=== PATIENT | female | born 1950 | race Caucasian/White ===

== ENCOUNTER → 2016-12-08 | Outpatient (CLI) | payer MEDICARE, OTHER ==
--- NOTE | 2016-12-12 11:05 | MM ---
Reason for exam: screening (asymptomatic). Last mammogram was performed 1 year ago. History: Patient is postmenopausal. Family history of breast cancer in grandmother and breast cancer in mother. Benign US biopsy breast VAD LT of the left breast, November 24, 2014. Benign excisional biopsy of the left breast, 1997. Physical Findings: A clinical breast exam by your physician is recommended on an annual basis and results should be correlated with mammographic findings. MG 3D Screening Mammo W/Cad Bilateral CC and MLO view(s) were taken. Prior study comparison: December 08, 2015, bilateral MG 3d diag mammo w/cad [facility]. November 24, 2014, left breast MG diagnostic mammo LT wo CAD. November 05, 2014, bilateral MG screening mammo w CAD. February 25, 2013, bilateral digital screening mammo w/CAD. There are scattered fibroglandular densities. No significant changes when compared with prior studies. ASSESSMENT: Benign, BI-RAD 2 RECOMMENDATION: Routine screening mammogram of both breasts in 1 year.
== END | disposition home or self-care (01) ==
LOC: RADMAMWWP 09:57
PROVIDERS: ATTEND Family Medicine
DX: Z12.31 Encounter for screening mammogram for malignant neoplasm of breast (principal); Z78.0 Asymptomatic menopausal state; Z80.3 Family history of malignant neoplasm of breast
CPT/HCPCS: 77063; G0202

== ENCOUNTER → 2017-12-24 | Outpatient (CLI) | payer MEDICARE, OTHER | END | disposition home or self-care (01) | LOC: LABPAT 14:41 | PROVIDERS: ATTEND Surgery Plastic and Reconstructive Surgery | DX: Z01.810 Encounter for preprocedural cardiovascular examination (principal) | CPT/HCPCS: 93005 ==

== ENCOUNTER → 2017-12-24 | Outpatient (CLI) | payer MEDICARE, OTHER ==
--- NOTE | 2017-12-26 10:07 | MM ---
Reason for exam: screening (asymptomatic). Last mammogram was performed 1 year and 1 month ago. History: Patient is postmenopausal. Family history of breast cancer in grandmother and breast cancer in mother. Benign US biopsy breast VAD LT of the left breast, November 24, 2014. Benign excisional biopsy of the left breast, 1997. Physical Findings: A clinical breast exam by your physician is recommended on an annual basis and results should be correlated with mammographic findings. MG 3D Screening Mammo W/Cad Bilateral CC and MLO view(s) were taken. Technologist: RT Tl (R)(M) Prior study comparison: December 08, 2016, bilateral MG 3d screening mammo w/cad. December 08, 2015, bilateral MG 3d diag mammo w/cad [facility]. There are scattered fibroglandular densities. Previous mammotome biopsy in the left breast at the site of chronic nodularity. No significant changes when compared with prior studies. ASSESSMENT: Negative, BI-RAD 1 RECOMMENDATION: Routine screening mammogram of both breasts in 1 year.
== END | disposition home or self-care (01) ==
LOC: RADMAMWWP 14:40
PROVIDERS: ATTEND Family Medicine
DX: Z12.31 Encounter for screening mammogram for malignant neoplasm of breast (principal); Z80.3 Family history of malignant neoplasm of breast
CPT/HCPCS: 77063; 77067

== ENCOUNTER 2018-01-17 10:07 | Day surgery (SDC) | payer MEDICARE, OTHER ==
[2017-12-28 12:50] VITALS: BMI 32.9
[~2018-01-17 10:07] MED LIST: DEXAMETHASONE SOD PHOSPHATE 10 MG/ML 1 ML VIAL IV ONE; MIDAZOLAM 2 MG/2 ML VIAL IV PRN; ONDANSETRON 4 MG/2 ML VIAL IVP ONE; Pre Op ABX Message 1 EACH MISC MISCELLANE ONE; SCOPOLAMINE 1.5MG/72HR PATCH TRANSDERM ONE; fentaNYL (PF) 50 MCG/ML 2 ML AMP IV PRN
[2018-01-17] MEDS ORDERED: LIDOCAINE 1% 20 ML VIAL (10MG/ML) FOR IV START INTRADERMA ONE (10:49)
[2018-01-17] MEDS: LACTATED RINGERS 1,000 ML IV SCH ×2 (10:49→11:23)
[2018-01-17 10:52] LABS: Glucose,Whole Blood 228 mg/dL (75-99)
[2018-01-17] MEDS ORDERED: ceFAZolin IN SWFI 2 GM/20 ML SYRINGE IVP STA (11:09)
--- NOTE | 2018-01-17 11:09 | P.GSHP ---
History of Present Illness H&P Date: 01/17/18 CHIEF COMPLAINT: Painful lesion at the left upper back HISTORY OF PRESENT ILLNESS: The patient is a 67 year-old female with history of lipoma of the back. She presents today for surgical excision. PAST MEDICAL HISTORY: Please see list. PAST SURGICAL HISTORY: Please see list. MEDICATIONS: Please see list. ALLERGIES: Please see list. SOCIAL HISTORY: No illicit drug use FAMILY HISTORY: No reports of Crohn disease or ulcerative colitis. REVIEW OF ORGAN SYSTEMS: CONSTITUTIONAL: No reports of fevers or chills. GI: Denies any blood in stools or constipation. PHYSICAL EXAM: VITAL SIGNS: Stable Musculoskeletal: Approximately 5 cm lipoma along the left upper back. SKIN: Lesion identified along bilateral thighs. GENERAL: Well developed and in no acute distress. Pleasant. HEENT: No sclera icterus. Extraocular movements grossly intact. Moist buccal mucosa. Head is atraumatic, normocephalic. Hears conversational speech. No nasal drainage. NECK: Supple without lymphadenopathy. No JV distention. CHEST: Non-labored respirations and equal bilateral excursions. CARDIOVASCULAR: Regular rate and rhythm. Palpable 2+ radial pulses. ABDOMEN: Soft. Non-tender. Nondistended. NEUROLOGIC: No focal or lateralizing signs. PSYCH: Appropriate affect. Alert and oriented to person, place and time. ASSESSMENT: 1. Lipomas along the left upper back PLAN: 1. Will proceed of excision of subcutaneous tumors along the upper back 2. DVT prophylaxis. 3. Antibiotic prophylaxis. 4. Time of recovery, at least 2 weeks. Past Medical History Past Medical History: Diabetes Mellitus, Eye Disorder, Hyperlipidemia, Hypertension Additional Past Medical History / Comment(s): Cataracts History of Any Multi-Drug Resistant Organisms: None Reported Past Surgical History: Breast Surgery, Cholecystectomy, Orthopedic Surgery Additional Past Surgical History / Comment(s): shoulder scope; Lipoma x 2; benighn breast biopsy Past Anesthesia/Blood Transfusion Reactions: No Reported Reaction Smoking Status: Never smoker - Past Family History Mother Family Medical History: Cancer Additional Family Medical History / Comment(s): Breast CA Medications and Allergies Home Medications Medication Instructions Recorded Confirmed Type Aspirin 325 mg PO DAILY 12/28/17 01/17/18 History Atorvastatin [Lipitor] 20 mg PO HS 12/28/17 01/17/18 History Etodolac [Lodine] 400 mg PO BID 12/28/17 01/17/18 History Quinapril/Hydrochlorothiazide 1 each PO DAILY 12/28/17 01/17/18 History [Accuretic 10-12.5 mg Tablet] metFORMIN HCL [Glucophage] 850 mg PO BID 12/28/17 01/17/18 History Allergies Allergy/AdvReac Type Severity Reaction Status Date / Time hydrocodone [From Lortab] AdvReac Nausea & Verified 12/28/17 12:40 Vomiting morphine AdvReac Nausea & Verified 12/28/17 12:40 Vomiting Surgical - Exam Vital Signs Temp Pulse Resp BP Pulse Ox 98.2 F 98 18 185/84 96 01/17/18 10:46 01/17/18 10:46 01/17/18 10:46 01/17/18 10:46 01/17/18 10:46 Results - Labs Abnormal Lab Results - Last 24 Hours (Table) 01/17/18 Range/Units 10:48 POC Glucose (mg/dL) 228 H (75-99) mg/dL
[2018-01-17] MEDS ORDERED: PROPOFOL 10 MG/ML 20 ML VIAL IV ONE (11:25)
[2018-01-17] MEDS ORDERED: LIDOCAINE 1% INJ 10MG/ML (20 ML MDV) ONE (11:25)
[2018-01-17] MEDS ORDERED: MIDAZOLAM 2 MG/2 ML VIAL ONE (11:25)
[2018-01-17] MEDS ORDERED: SUCCINYLCHOLINE CHLORIDE 100 MG/5 ML SYR IV ONE (11:25)
[2018-01-17] MEDS ORDERED: fentaNYL (PF) 50 MCG/ML 2 ML AMP ONE (11:25)
[2018-01-17] MEDS ORDERED: BUPIVACAIN-EPI 0.5%-1:200,000 30 ML VIAL SQ ONE (11:51)
--- NOTE | 2018-01-17 12:26 | P.OP ---
Date of Procedure: 01/17/18 Surgeon: La Belcher Description of Procedure: Date of Procedure: 01/17/18 SURGEON: LA BELCHER MD PROPULSION MOTOR AND GENERATOR REPAIRER: None. PREOPERATIVE DIAGNOSES: 1. Recurrent lipoma left upper back POSTOPERATIVE DIAGNOSES: 1. Recurrent lipoma left upper back, 7 x 6 cm, intramuscular PROCEDURES PERFORMED: 1. Excision of deep left upper back subfascial and intramuscular tumor, 7 x 6 cm 2. Intermediate closure of 8 cm along left upper back ANESTHESIA: GETA with local ESTIMATED BLOOD LOSS: 5 mL. SPECIMENS REMOVED: Left upper back tumor, 7 x 6 cm COMPLICATIONS: None. INDICATIONS: The patient is a 67-year-old female with recurrent left upper back lipoma. Now she presents for surgical intervention. Benefits and risks of surgical intervention were described including bleeding, infection. Informed consent was obtained. DESCRIPTION OR PROCEDURE: Patient was brought into the operating room, laid in prone position. After general, the back was prepped and draped in a standard sterile fashion with ChloraPrep. Timeout protocol was confirmed with the surgical team regarding the patient's name, procedure to be performed including preoperative medications. DVT prophylaxis was confirmed. A field block was placed of the back. Indelible marker was placed around the tumor 7 x 6 cm. An incision using #15 blade was made along the marking into the dermis and subcutaneous tissue. Electro-Bovie cautery was used to excise the lesion deep to the fascia and intramuscular in a transverse elliptical fashion. Undermining was performed along for closure. 0 Vicryl for the deep subcutaneous tissue followed by 3-0 Vicryl was placed in interrupted fashion. 4-0 Monocryl in a running subcuticular fashion was placed along the dermis. The skin was cleansed and Exofin tape with liquid was applied for a four layer closure. The incision was covered with Optifoam dressing. Local anesthetic was placed. At the end of the procedure, needle, sponge, and instrument count was verified correct by surgical elastic knitter hand frame. The patient was awoken and taken to the second stage postanesthesia care unit. The patient tolerated the procedure well. FINDINGS: 1. Deep subcutaneous intramuscular tumor extended to the subfascial, 6 x 7 cm excision
[2018-01-17 12:44] VITALS: TEMP 97.2
[2018-01-17 12:48] VITALS: RESP 16
[2018-01-17] MEDS ORDERED: LACTATED RINGERS 1,000 ML IV ONE (14:14)
[2018-01-17 14:36] VITALS: BP 126/78; PULSE 84
== END 2018-01-17 14:55 | disposition home or self-care (01) ==
LOC: OR 10:07
PROVIDERS: ATTEND Surgery Plastic and Reconstructive Surgery
DX: D17.9 Benign lipomatous neoplasm, unspecified (principal); I10 Essential (primary) hypertension; E78.2 Mixed hyperlipidemia; E11.36 Type 2 diabetes mellitus with diabetic cataract; K21.9 Gastro-esophageal reflux disease without esophagitis; Z79.84 Long term (current) use of oral hypoglycemic drugs; Z79.82 Long term (current) use of aspirin; Z79.899 Other long term (current) drug therapy; Z88.5 Allergy status to narcotic agent; Z90.49 Acquired absence of other specified parts of digestive tract; Z82.49 Family history of ischemic heart disease and other diseases of the circulatory system
CPT/HCPCS: 88304; 21933; J2250; J1100; J2405; J2001; J3010; J0330; J2704

== ENCOUNTER → 2019-01-07 | Outpatient (CLI) | payer MEDICARE, OTHER ==
--- NOTE | 2019-01-07 18:07 | BD ---
EXAMINATION TYPE: Axial Bone Density DATE OF EXAM: 01/07/2019 COMPARISON: 11/10/2002 CLINICAL HISTORY: Height: 60.5 IN Weight: 172 LBS FRAX RISK QUESTIONS: Family History (Parent hip fracture): YES MOTHER RISK FACTORS HISTORY OF: Active: YES Diet low in dairy products/other sources of calcium: YES Postmenopausal woman: AGE 49 MEDICATIONS: Additional Medications: BLOOD PRESSURE MED, CHOLESTEROL MED, ASPIRIN, ANTI INFLAMMATORY, METFORMIN EXAM MEASUREMENTS: Bone mineral densitometry was performed using the Manager[employer] System. Bone mineral density as measured about the Lumbar spine is: ----- L1-L4(G/cm2): 1.632 T Score Values are as follows: ----- L2: 3.5 ----- L3: 5.3 ----- L4: 3.5 ----- L1-L4: 3.8 Bone mineral density has: Increased 26.3% since study of: 11/10/2002 Bone mineral density about the R hip (g/cm2): 0.915 Bone mineral density about the L hip (g/cm2): 0.948 T Score values are as follows: -----R Neck: -0.9 -----L Neck: -0.6 -----R Total: -1.0 -----L Total: -0.7 Bone mineral density has: Decreased -15.1% since study of: 11/10/2002 IMPRESSION: Normal (Values between +1 and -1 indicate normal bone mass). Consider repeating this study in 5 year s or sooner if there is some new clinical indication. NOTE: T-SCORE=SD OF THE YOUNG ADULT MEAN.
--- NOTE | 2019-01-08 13:46 | MM ---
Reason for exam: screening (asymptomatic). Last mammogram was performed 1 year ago. History: Patient is postmenopausal. Family history of breast cancer in grandmother and breast cancer in mother. Benign US biopsy breast VAD LT of the left breast, November 24, 2014. Benign excisional biopsy of the left breast, 1997. Physical Findings: A clinical breast exam by your physician is recommended on an annual basis and results should be correlated with mammographic findings. MG 3D Screening Mammo W/Cad Bilateral CC, MLO, and XCCL view(s) were taken. Prior study comparison: December 24, 2017, bilateral MG 3d screening mammo w/cad. December 08, 2016, bilateral MG 3d screening mammo w/cad. There are scattered fibroglandular densities. Stable calcifications. There is no discrete abnormality. No significant changes when compared with prior studies. ASSESSMENT: Benign, BI-RAD 2 RECOMMENDATION: Routine screening mammogram of both breasts in 1 year.
== END | disposition home or self-care (01) ==
LOC: RADMAMWWP 14:40
PROVIDERS: ATTEND Family Medicine
DX: Z12.31 Encounter for screening mammogram for malignant neoplasm of breast (principal); Z13.820 Encounter for screening for osteoporosis; M81.0 Age-related osteoporosis without current pathological fracture
CPT/HCPCS: 77063; 77067; 77080

== ENCOUNTER → 2019-12-12 | Outpatient (CLI) | payer MEDICARE, OTHER ==
[2019-12-12 12:34] LABS: Basophils # (A) 0.1 k/uL (0-0.2); Basophils % (A) 2 %; Eosinophils # (A) 0.1 k/uL (0-0.7); Eosinophils % (A) 2 %; HCT 38.5 % (34.0-46.0); HGB 12.2 gm/dL (11.4-16.0); Lymphocytes # (A) 1.1 k/uL (1.0-4.8); Lymphocytes % (A) 20 %; MCH 26.9 pg (25.0-35.0); MCHC 31.7 g/dL (31.0-37.0); MCV 84.9 fL (80.0-100.0); Mean Platelet Volume 8.2; Monocytes # (A) 0.3 k/uL (0-1.0); Monocytes % (A) 5 %; Neutrophils # (A) 4.1 k/uL (1.3-7.7); Neutrophils % (A) 70 %; Platelet Count 246 k/uL (150-450); RBC 4.54 m/uL (3.80-5.40); RDW 13.3 % (11.5-15.5); WBC 5.8 k/uL (3.8-10.6)
[2019-12-12 17:57] LABS: African American GFR (CKD) 75.1 (60.0-200.0); Albumin 4.1 g/dL (3.80-4.90); Albumin/Globulin Ratio 1.95 (1.60-3.17); Anion Gap 8.2 mmol/L (4.00-12.00); BUN/Creat Ratio 18.89 Ratio (12.00-20.00); Calcium 9.9 mg/dL (8.7-10.3); Carbon Dioxide 26.8 mmol/L (21.6-31.8); Chol/HDL Ratio 3.21; Globulin 2.1 g/dL (1.6-3.3); LDL Cholesterol,Calculated 84.6 mg/dL (0.0-131.0); Non-African American GFR(CKD) 64.8 (60.0-200.0); Potassium 4.3 mmol/L (3.5-5.5); Total Bilirubin 0.7 mg/dL (0.3-1.2); Total Protein 6.2 g/dL (6.2-8.2); VLDL Calculation 19.4 mg/dL (5.00-40.00)
[2019-12-12 19:27] LABS: Hemoglobin A1C 7.4 % (4.0-6.0)
== END | disposition home or self-care (01) ==
LOC: LABWHC1 10:59
PROVIDERS: ATTEND Family Medicine
DX: I10 Essential (primary) hypertension (principal); E78.2 Mixed hyperlipidemia; E11.9 Type 2 diabetes mellitus without complications
CPT/HCPCS: 36415; 80053; 80061; 82043; 82570; 83036; 85025

== ENCOUNTER → 2020-01-08 | Outpatient (CLI) | payer MEDICARE, OTHER ==
--- NOTE | 2020-01-09 12:13 | MM ---
Reason for exam: screening (asymptomatic). Last mammogram was performed 1 year ago. History: Patient is postmenopausal. Family history of breast cancer in grandmother and breast cancer in mother. Benign US biopsy breast VAD LT of the left breast, November 24, 2014. Benign excisional biopsy of the left breast, 1997. Physical Findings: A clinical breast exam by your physician is recommended on an annual basis and results should be correlated with mammographic findings. MG 3D Screening Mammo W/Cad Bilateral CC and MLO view(s) were taken. Prior study comparison: January 07, 2019, bilateral MG 3d screening mammo w/cad. December 24, 2017, bilateral MG 3d screening mammo w/cad. The breast tissue is heterogeneously dense. This may lower the sensitivity of mammography. There are benign appearing round vascular calcifications bilaterally. Previous mammotome biopsy in the left breast. There is chronic nodularity in the left breast near nipple. There is no discrete abnormality. ASSESSMENT: Benign, BI-RAD 2 RECOMMENDATION: Routine screening mammogram of both breasts in 1 year.
== END ==
LOC: RADMAMWWP 16:35
PROVIDERS: ATTEND Family Medicine
DX: Z12.31 Encounter for screening mammogram for malignant neoplasm of breast (principal)
CPT/HCPCS: 77063; 77067

== ENCOUNTER → 2020-12-10 | Outpatient (CLI) | payer MEDICARE, OTHER ==
[2020-12-10 18:51] LABS: Eosinophils # (A) 0.18 X 10*3/uL (0.04-0.35); Eosinophils % (A) 3.6 %; HGB 11.5 g/dL (12.0-15.0); Lymphocytes # (A) 1.06 X 10*3/uL (0.90-5.00); Lymphocytes % (A) 21.1 %; MCH 28.5 pg (27.0-32.0); MCHC 32.9 g/dL (32.0-37.0); MCV 86.6 fL (80.0-97.0); Mean Platelet Volume 10.7 fL (9.5-12.2); Monocytes # (A) 0.42 X 10*3/uL (0.20-1.00); Monocytes % (A) 8.3 %; Neutrophils # (A) 3.26 X 10*3/uL (1.80-7.70); Neutrophils % (A) 64.8 %; Platelet Count 293 X 10*3/uL (140-440); RBC 4.04 X 10*6/uL (4.10-5.20); RDW 13.2 % (11.5-14.5); WBC 5.03 X 10*3/uL (4.50-10.00)
[2020-12-10 21:04] LABS: Hemoglobin A1C 6.7 % (4.0-6.0)
[2020-12-11 18:17] LABS: African American GFR (CKD) 58.5 (60.0-200.0); Albumin 4.7 g/dL (3.80-4.90); Albumin/Globulin Ratio 2.47 (1.60-3.17); Anion Gap 14.5 mmol/L (4.00-12.00); BUN/Creat Ratio 21.82 Ratio (12.00-20.00); Calcium 10.5 mg/dL (8.7-10.3); Carbon Dioxide 21.5 mmol/L (21.6-31.8); Chol/HDL Ratio 2.74; Globulin 1.9 g/dL (1.6-3.3); LDL Cholesterol,Calculated 70.8 mg/dL (0.0-131.0); Non-African American GFR(CKD) 50.5 (60.0-200.0); Potassium 4.9 mmol/L (3.5-5.5); Total Bilirubin 0.6 mg/dL (0.3-1.2); Total Protein 6.6 g/dL (6.2-8.2); VLDL Calculation 21.2 mg/dL (5.00-40.00)
== END | disposition home or self-care (01) ==
LOC: LABWHC1 11:40
PROVIDERS: ATTEND Family Medicine
DX: I10 Essential (primary) hypertension (principal); E11.9 Type 2 diabetes mellitus without complications
CPT/HCPCS: 36415; 80053; 80061; 82043; 82570; 83036; 84443; 85025

== ENCOUNTER → 2021-01-20 | Outpatient (CLI) | payer MEDICARE, OTHER ==
--- NOTE | 2021-01-21 12:05 | MM ---
Reason for exam: screening (asymptomatic). Last mammogram was performed 1 year ago. History: Patient is postmenopausal. Family history of breast cancer in grandmother and breast cancer in mother. Benign US biopsy breast VAD LT of the left breast, November 24, 2014. Benign excisional biopsy of the left breast, 1997. Physical Findings: A clinical breast exam by your physician is recommended on an annual basis and results should be correlated with mammographic findings. MG 3D Screening Mammo W/Cad Bilateral CC and MLO view(s) were taken. Prior study comparison: January 08, 2020, bilateral MG 3d screening mammo w/cad. January 07, 2019, bilateral MG 3d screening mammo w/cad. December 24, 2017, bilateral MG 3d screening mammo w/cad. There are scattered fibroglandular densities. Previous mammotome biopsy in the left breast. Focal asymmetry left subareolar, stable. No significant changes when compared with prior studies. ASSESSMENT: Benign, BI-RAD 2 RECOMMENDATION: Routine screening mammogram of both breasts in 1 year.
== END | disposition home or self-care (01) ==
LOC: RADMAMWWP 07:33
PROVIDERS: ATTEND Family Medicine
DX: Z12.31 Encounter for screening mammogram for malignant neoplasm of breast (principal); Z08 Encounter for follow-up examination after completed treatment for malignant neoplasm; Z80.3 Family history of malignant neoplasm of breast
CPT/HCPCS: 77063; 77067

== ENCOUNTER → 2021-12-13 | Outpatient (CLI) | payer MEDICARE, OTHER | END | disposition home or self-care (01) | LOC: PAT 12:13 | PROVIDERS: ATTEND Internal Medicine Interventional Cardiology | DX: Z01.812 Encounter for preprocedural laboratory examination (principal); Z22.322 Carrier or suspected carrier of Methicillin resistant Staphylococcus aureus; R94.39 Abnormal result of other cardiovascular function study; M17.11 Unilateral primary osteoarthritis, right knee; E11.9 Type 2 diabetes mellitus without complications; E78.2 Mixed hyperlipidemia; I10 Essential (primary) hypertension | CPT/HCPCS: 36415; 80053; 80061; 82043; 82565; 82570; 83036; 84443; 84520; 85025; 85610; 87070 ==

== ENCOUNTER → 2021-12-13 | Outpatient (CLI) | payer MEDICARE, OTHER | END | disposition home or self-care (01) | LOC: LABWHC1 12:37 | PROVIDERS: ATTEND Internal Medicine | DX: E11.9 Type 2 diabetes mellitus without complications (principal); E78.2 Mixed hyperlipidemia; I10 Essential (primary) hypertension | CPT/HCPCS: 36415; 80053; 80061; 82043; 82570; 83036; 84443; 85025 ==

== ENCOUNTER → 2021-12-16 | Outpatient (CLI) | payer MEDICARE, OTHER ==
[2021-12-16 18:21] LABS: Basophils % (A) 1.5 %; Eosinophils # (A) 0.12 X 10*3/uL (0.04-0.35); Eosinophils % (A) 1.9 %; HCT 36.1 % (37.2-46.3); HGB 11.7 g/dL (12.0-15.0); Immature Grans, Automated 0.5 %; Lymphocytes # (A) 1.09 X 10*3/uL (0.90-5.00); Lymphocytes % (A) 16.8 %; MCH 27.7 pg (27.0-32.0); MCHC 32.4 g/dL (32.0-37.0); MCV 85.5 fL (80.0-97.0); Mean Platelet Volume 11.1 fL (9.5-12.2); Monocytes # (A) 0.49 X 10*3/uL (0.20-1.00); Monocytes % (A) 7.6 %; NRBC Per 100 WBC 0 /100 WBCS (0.0-0.0); Neutrophils # (A) 4.65 X 10*3/uL (1.80-7.70); Neutrophils % (A) 71.7 %; Platelet Count 319 X 10*3/uL (140-440); RBC 4.22 X 10*6/uL (4.10-5.20); RDW 13.7 % (11.5-14.5); WBC 6.48 X 10*3/uL (4.50-10.00)
[2021-12-16 18:47] LABS: ALT 12 U/L (8-44); AST 17 U/L (13-35); Albumin 4.1 g/dL (3.8-4.9); Albumin/Globulin Ratio 1.95 (1.60-3.17); Alkaline Phosphatase 72 U/L (41-126); BUN/Creat Ratio 13.56 Ratio (12.00-20.00); Blood Urea Nitrogen 12.2 mg/dL (9.0-27.0); Calcium 10.2 mg/dL (8.7-10.3); Carbon Dioxide 23.2 mmol/L (20.0-27.5); Chloride 100 mmol/L (96-109); Chol/HDL Ratio 2.54 Ratio; Globulin 2.1 g/dL (1.6-3.3); Glucose 115 mg/dL (70-110); LDL Cholesterol,Calculated 65.5 mg/dL (0.0-131.0); Non-African American GFR(CKD) 63.9 (60.0-200.0); Sodium 134 mmol/L (135-145); Total Protein 6.2 g/dL (6.2-8.2)
== END | disposition home or self-care (01) ==
LOC: LABWHC1 12:12
PROVIDERS: ATTEND Internal Medicine
DX: I10 Essential (primary) hypertension (principal); E11.9 Type 2 diabetes mellitus without complications; E78.2 Mixed hyperlipidemia
CPT/HCPCS: 36415; 80053; 80061; 82043; 82570; 83036; 84443; 85025

== ENCOUNTER → 2021-12-16 | Outpatient (CLI) | payer MEDICARE, OTHER ==
[2021-12-16 19:04] LABS: INR 0.96 (0.90-1.11); Prothrombin Time 10.6 sec (9.9-11.9)
== END | disposition home or self-care (01) ==
LOC: LABPAT 12:08
PROVIDERS: ATTEND Orthopaedic Surgery
DX: Z01.812 Encounter for preprocedural laboratory examination (principal); R94.39 Abnormal result of other cardiovascular function study; M17.11 Unilateral primary osteoarthritis, right knee; Z22.322 Carrier or suspected carrier of Methicillin resistant Staphylococcus aureus
CPT/HCPCS: 85610; 87070

== ENCOUNTER 2021-12-19 06:19 | Day surgery (SDC) | payer MEDICARE, OTHER ==
[2021-12-19] MEDS ORDERED: NITROGLYCERIN SL TABS 0.4 MG TAB SUBLINGUAL PRN ×2 (06:22→08:21)
[2021-12-19] MEDS ORDERED: SODIUM CHLORIDE 0.9% 1,000 ML in EMPTY BAG 1 BAG IV SCH ×2 (06:22→08:30)
[2021-12-19] MEDS ORDERED: ALPRAZolam 0.25 MG TAB PO PRN (06:22)
[2021-12-19] MEDS ORDERED: ASPIRIN 325 MG TAB PO STA (06:22)
[2021-12-19] MEDS ORDERED: ALPRAZolam 0.5 MG TAB PO PRN (06:22)
[2021-12-19 07:02] LABS: Glucose,Whole Blood 147 mg/dL (70-110)
[2021-12-19 07:14] VITALS: TEMP 98.2
[2021-12-19] MEDS ORDERED: fentaNYL (PF) 50 MCG/ML 2 ML AMP ONE (07:20)
[2021-12-19] MEDS ORDERED: VERAPAMIL 2.5 MG/ML 2 ML AMP ONE (07:20)
[2021-12-19] MEDS ORDERED: ONDANSETRON 4 MG/2 ML VIAL ONE (07:28)
[2021-12-19] MEDS ORDERED: fentaNYL (PF) 50 MCG/ML 2 ML AMP IVP ONE (07:30)
[2021-12-19] MEDS ORDERED: HEPARIN SODIUM 1,000 UN/ML (10ML VL) ONE (07:30)
[2021-12-19] MEDS ORDERED: ONDANSETRON 4 MG/2 ML VIAL IVP ONE (07:33)
[2021-12-19] MEDS ORDERED: LIDOCAINE 1% INJ 10MG/ML (30 ML VIAL-PF) SQ ONE (07:33)
[2021-12-19] MEDS ORDERED: MIDAZOLAM 2 MG/2 ML VIAL IVP ONE ×2 (07:34)
[2021-12-19] MEDS ORDERED: VERAPAMIL SYRINGE (5 MG/10 ML) INTRAARTER ONE (07:35)
[2021-12-19] MEDS ORDERED: HEPARIN SODIUM 1,000 UN/ML (10ML VL) IVP ONE ×2 (07:39)
[2021-12-19] MEDS ORDERED: NITROGLYCERIN 1000MCG/10ML SYRINGE INTRACORON ONE (07:52)
[2021-12-19] MEDS ORDERED: CLOPIDOGREL 75 MG TAB ONE (07:54)
[2021-12-19] MEDS ORDERED: CLOPIDOGREL 75 MG TAB PO ONE (07:57)
[2021-12-19] MEDS ORDERED: HEPARIN SODIUM 1,000 UN/ML (10ML VL) IV ONE (07:58)
[2021-12-19] MEDS ORDERED: IOPAMIDOL-370 125ML BTL INJ ONE (08:07)
[2021-12-19] MEDS ORDERED: RX INFO: IV CONTRAST WAS GIVEN 1 EACH MISC MISCELLANE PRN (08:21)
[2021-12-19] MEDS ORDERED: MAG HYDROX/AL HYDROX/SIMETH 30 ML CUP PO PRN (08:21)
[2021-12-19] MEDS ORDERED: ATROPINE SULFATE 0.1 MG/ML 10ML SYRINGE IV PRN (08:21)
[2021-12-19] MEDS ORDERED: ZOLPIDEM 5 MG TAB PO PRN (08:21)
--- NOTE | 2021-12-19 08:32 | P.CARDCATH ---
Date of Procedure: 12/19/21 Description of Procedure: Cardiac Catheterization: The patient is a 71-year-old female with known history of hypertension, hyperlipidemia and diabetes mellitus who is scheduled to undergo orthopedic surgery, had an abnormal MPI. Recommendations were made regarding cardiac catheterization, the risks and the complications were discussed with the patient who is in full understanding and agreement. Procedure Description: Patient was brought to quality assurance qa lab technician in fasting semi-sedated state after receiving Fentanyl and Benadryl achieiving moderate conscious sedated state. Using Xylocaine Anesthesia and Seldinger technique, a 6-[place] sheath was introduced in the right radial artery . Subsequently, selective coronary angiography was performed using a 5-[place] 3.5 bend Delbert catheter. Multiple views of the coronary artery including hemiaxial views were obtained. The left Delbert catheter was used to cross the aortic valve and LVEDP was calculated. Following that a 6-[place] AL 0.75 guiding catheter was introduced and the system, after cannulating the right coronary ostium Doppler flow wire was advanced to the distal RCA and IFR was measured at 0.86. Following that a 2.5X12 mm NC Treck balloon was advanced and one inflation at 8 yana was done, after removing the balloon to 3.25 x 18 mm Xience royer point stent was advanced and deployed at 16 yana. IFR was remeasured at 0.94. Following that, catheter and sheath were removed. Hemostasis was obtained with deployment of TR band . There was no immediate complication. Patient was returned to room in stable condition. Of note, the patient received a total of 5500 units of intravenous heparin as well as intra-arterial verapamil. She received an oral loading dose of clopidogrel. Her ACT was measured. She had no chest discomfort or significant EKG changes. Findings: Fluoroscopy: Severe calcifications of all the coronary arteries Left main: This is a large size vessel, bifurcating into LAD and left circumflex, left main has no high-grade stenosis. LAD: This is a large size vessel, giving rise to one diagonal branch, heavily calcified. The LAD in the proximal segment has a 50% stenosis and there is another 40-50% plaque in the mid distal segment Left circumflex: This is a nondominant large size vessel, even drives to a large proximal obtuse marginal branch. The left circumflex and its branches have no evidence of high-grade stenosis RCA: This is a large dominant calcified vessel, bifurcating distally to PDA and PLV. The mid RCA has a 60-70% stenosis Left Ventriculogram: Not performed Hemodynamics: There was no gradient across the aortic valve, LVEDP was 16-18 mmHg Conclusion: 1. Severely calcified coronary arteries 2. Significant mid RCA lesion by IFR 3. Moderate disease in the proximal LAD 4. Successful stenting of the mid RCA with reduction of the stenosis from 65% to 0%. Recommendations: The patient will be continued on aspirin and Plavix without any interruption for 6 months in addition to aggressive coronary risks modifications. The findings and the recommendations were discussed with the patient and the family and they were in full understanding and agreement. Duration of sedation is 41 minutes.
[2021-12-19] MEDS ORDERED: ACETAMINOPHEN TAB 325 MG TAB ONE (08:55)
[2021-12-19 14:21] VITALS: RESP 16
[2021-12-19 14:22] VITALS: BP 142/64; PULSE 72
[2021-12-19] MEDS ORDERED: ATORVASTATIN 20 MG TAB PO SCH (21:00)
[2021-12-20] MEDS ORDERED: CLOPIDOGREL 75 MG TAB PO SCH (09:00)
[2021-12-20] MEDS ORDERED: LISINOPRIL-HCTZ 20-12.5 MG 1 EACH TAB PO SCH (09:00)
[2021-12-20] MEDS ORDERED: ASPIRIN 81 MG PO SCH (09:00)
== END 2021-12-19 13:18 | disposition home or self-care (01) ==
LOC: CATHCVL 06:19
PROVIDERS: ATTEND Internal Medicine Interventional Cardiology
DX: I25.10 Atherosclerotic heart disease of native coronary artery without angina pectoris (principal); I25.84 Coronary atherosclerosis due to calcified coronary lesion; R94.39 Abnormal result of other cardiovascular function study; I10 Essential (primary) hypertension; E78.00 Pure hypercholesterolemia, unspecified; Z20.822 Contact with and (suspected) exposure to COVID-19; E11.9 Type 2 diabetes mellitus without complications; E78.2 Mixed hyperlipidemia; Z82.49 Family history of ischemic heart disease and other diseases of the circulatory system; M19.90 Unspecified osteoarthritis, unspecified site; Z90.49 Acquired absence of other specified parts of digestive tract; Z98.890 Other specified postprocedural states; Z87.891 Personal history of nicotine dependence; Z79.84 Long term (current) use of oral hypoglycemic drugs; Z79.82 Long term (current) use of aspirin; Z79.899 Other long term (current) drug therapy; Z88.5 Allergy status to narcotic agent
CPT/HCPCS: 93458; 93799; 87635; C9600; C1887; C1769 ×3; C1894; C1725; C1874; J2250; J2405; J2001; J3010; J1644; Q9967

== ENCOUNTER → 2022-01-23 | Outpatient (CLI) | payer MEDICARE, OTHER ==
--- NOTE | 2022-01-24 18:23 | MM ---
Reason for Exam: Screening (asymptomatic). Last screening mammogram was performed 12 month(s) ago. Patient History: Menarche at age 9. First Full-Term at age 17. Postmenopausal. 1997, Benign Excisional Biopsy on the left side. 11/24/2014, Benign Core Biopsy on the left side. Maternal grandmother had breast cancer. Mother had breast cancer. Risk Values: Sue 5 year model risk: 5.3%. NCI Lifetime model risk: 13.4%. Prior Study Comparison: 11/05/2014 Bilateral Screening Mammogram, [facility]. 12/08/2015 Bilateral Diagnostic Mammogram, [facility]. 12/08/2015 Left Diagnostic Ultrasound, [facility]. 12/08/2016 Bilateral Screening Mammogram, [facility]. 12/24/2017 Bilateral Screening Mammogram, [facility]. 01/07/2019 Bilateral Screening Mammogram, [facility]. 01/08/2020 Bilateral Screening Mammogram, [facility]. 01/20/2021 Bilateral Screening Mammogram, [facility]. Tissue Density: There are scattered fibroglandular densities. Findings: Analyzed By CAD. Chronic nodularity subareolar left breast with microclip related to prior biopsy. Benign bilateral vascular and oil cyst calcifications. No significant change from prior exams. Overall Assessment: Benign, BI-RAD 2 Management: Screening Mammogram of both breasts in 1 year. 1. Patient should continue monthly self breast exams. 2. A clinical breast exam by your physician is recommended on an annual basis. 3. This exam should not preclude additional follow-up of suspicious palpable abnormalities. Electronically signed and approved by: Dante Kraft M.D. Radiologist
--- NOTE | 2022-01-24 18:23 | MM ---
Reason for Exam: Screening (asymptomatic). Last screening mammogram was performed 12 month(s) ago. Patient History: Menarche at age 9. First Full-Term at age 17. Postmenopausal. 1997, Benign Excisional Biopsy on the left side. 11/24/2014, Benign Core Biopsy on the left side. Maternal grandmother had breast cancer. Mother had breast cancer. Risk Values: Sue 5 year model risk: 5.3%. NCI Lifetime model risk: 13.4%. Prior Study Comparison: 11/05/2014 Bilateral Screening Mammogram, [facility]. 12/08/2015 Bilateral Diagnostic Mammogram, [facility]. 12/08/2015 Left Diagnostic Ultrasound, [facility]. 12/08/2016 Bilateral Screening Mammogram, [facility]. 12/24/2017 Bilateral Screening Mammogram, [facility]. 01/07/2019 Bilateral Screening Mammogram, [facility]. 01/08/2020 Bilateral Screening Mammogram, [facility]. 01/20/2021 Bilateral Screening Mammogram, [facility]. Tissue Density: There are scattered fibroglandular densities. Findings: Analyzed By CAD. Chronic nodularity subareolar left breast with microclip related to prior biopsy. Benign bilateral vascular and oil cyst calcifications. No significant change from prior exams. Overall Assessment: Benign, BI-RAD 2 Management: Screening Mammogram of both breasts in 1 year. 1. Patient should continue monthly self breast exams. 2. A clinical breast exam by your physician is recommended on an annual basis. 3. This exam should not preclude additional follow-up of suspicious palpable abnormalities. Electronically signed and approved by: Dante Kraft M.D. Radiologist
== END | disposition home or self-care (01) ==
LOC: RADMAMWWP 13:14
PROVIDERS: ATTEND Internal Medicine
DX: Z12.31 Encounter for screening mammogram for malignant neoplasm of breast (principal)
CPT/HCPCS: 77063; 77067

== ENCOUNTER 2022-12-12 06:29 | Day surgery (SDC) | payer MEDICARE, OTHER ==
--- NOTE | 2022-12-11 08:36 | P.HPOR ---
History of Present Illness H&P Date: 12/11/22 Chief Complaint: Right knee pain The patient is a 72-year-old retired female who presents with progressive right knee pain that worsened over the past year. She notes diffuse pain along with swelling. She has a difficult time getting up from a seated position. Her pain is worse with weightbearing activities. She has locking and buckling. She tried medications in addition to an injection with temporary partial relief. Review of Systems As per HPI Past Medical History Past Medical History: Diabetes Mellitus, GERD/Reflux, Hyperlipidemia, Hypertension, Osteoarthritis (OA) Additional Past Medical History / Comment(s): back pain, bilateral knee pain History of Any Multi-Drug Resistant Organisms: None Reported Past Surgical History: Breast Surgery, Cholecystectomy, Heart Catheterization With Stent, Orthopedic Surgery Additional Past Surgical History / Comment(s): shoulder scope; Lipoma x 2; benig n breast biopsy, cataracts Past Anesthesia/Blood Transfusion Reactions: No Reported Reaction Date of Last Stent Placement:: 12/25/21 Smoking Status: Never smoker - Past Family History Mother Family Medical History: Cancer Additional Family Medical History / Comment(s): Breast CA Father Family Medical History: Coronary Artery Disease (CAD), Diabetes Mellitus, Hypertension Medications and Allergies Home Medications Medication Instructions Recorded Confirmed Type Aspirin 81 mg PO DAILY 12/28/17 12/06/22 History Atorvastatin [Lipitor] 20 mg PO HS 12/28/17 12/06/22 History Etodolac [Lodine] 400 mg PO BID 12/28/17 12/06/22 History metFORMIN HCL [Glucophage] 850 mg PO BID 12/28/17 12/06/22 History Lisinopril-Hctz 20-12.5 mg 1 tab PO DAILY 12/15/21 12/06/22 History [Zestoretic 20-12.5] Nitroglycerin Sl Tabs [Nitrostat] 0.4 mg SUBLINGUAL Q5M PRN #25 tab 12/19/21 12/06/22 Rx Famotidine 20 mg PO HS 12/06/22 12/06/22 History amLODIPine BESYLATE 5 mg PO DAILY 12/06/22 12/06/22 History Allergies Allergy/AdvReac Type Severity Reaction Status Date / Time hydrocodone [From Lortab] AdvReac Nausea & Verified 12/06/22 10:38 Vomiting morphine AdvReac Nausea & Verified 12/06/22 10:38 Vomiting Physical Examination - Knee right Effusion grade: grade 2 Varus alignment in stance: 5 degrees Tenderness with palpation: medial Pain: throughout ROM Gait: limping ROM: extension: -10 degrees ROM: flexion: 110 degrees Crepitus with motion: Yes Strength: extension: 5/5 Strength: flexion: 5/5 Meniscal tests: medial meniscal tests: positive, medial joint line pain: posi tive Results The patient is a well-developed well-nourished female approximately 5 foot 1 165 pounds of endomorphic habitus. HEENT exam is nonfocal, neck is supple. She has painless passive motion of the right hip. Straight leg raise is negative. She's tender about the medial joint line of the right knee. Collaterals are stable, Rafiq was negative, Vasquez elicits medial pain. She has genu varum alignment. Her distal neurovascular appears intact in the right lower extremity. - Diagnostic results Knee x-ray: image reviewed (3 views of the right knee obtained in the office show severe medial compartment osteoarthrosis with subchondral sclerosis and [id number] changes.) Assessment and Plan Assessment: Right knee severe tricompartmental osteoarthrosis History of coronary artery disease status post stenting Plan: I talked to the patient length regarding her condition along with treatment options. At this point she is having significant pain and mechanical symptoms related to her osteoarthrosis despite attempted conservative measures. After thorough discussion she opted to proceed with surgery. We will plan to proceed with right total knee arthroplasty. Risks and benefits were discussed at length in layman's terms.
[~2022-12-12 06:29] MED LIST changes: +ACETAMINOPHEN TAB 500 MG TAB PO PRN; -DEXAMETHASONE SOD PHOSPHATE 10 MG/ML 1 ML VIAL IV ONE; +MELOXICAM 7.5 MG TAB PO PRN; -MIDAZOLAM 2 MG/2 ML VIAL IV PRN; -ONDANSETRON 4 MG/2 ML VIAL IVP ONE; -Pre Op ABX Message 1 EACH MISC MISCELLANE ONE; -SCOPOLAMINE 1.5MG/72HR PATCH TRANSDERM ONE; +TRANEXAMIC 1,000 MG/100ML-NACL 1,000 MG in SALINE 1 100ML.BAG IVPB PRN; -fentaNYL (PF) 50 MCG/ML 2 ML AMP IV PRN
[2022-12-12] MEDS ORDERED: ONDANSETRON 4 MG/2 ML VIAL ONE (07:27)
[2022-12-12] MEDS ORDERED: ONDANSETRON 4 MG/2 ML VIAL IVP ONE (07:30)
[2022-12-12] MEDS ORDERED: LIDOCAINE 1% (10MG/ML) FOR IV START INTRADERMA PRN (07:30)
[2022-12-12] MEDS ORDERED: droPERidol 5 MG/2 ML VIAL IVP ONE (07:30)
[2022-12-12 07:46] LABS: Glucose,Whole Blood 169 mg/dL (70-110)
[2022-12-12] MEDS: LACTATED RINGERS 1,000 ML IV SCH ×2 (07:46→14:46)
[2022-12-12] MEDS: DEXAMETHASONE SOD PHOSPHATE 4 MG/ML 1 ML VIAL IV ONE ×2 (07:49→08:00)
[2022-12-12] MEDS ORDERED: MIDAZOLAM 2 MG/2 ML VIAL IVP ONE (08:09)
[2022-12-12] MEDS ORDERED: fentaNYL (PF) 50 MCG/ML 2 ML AMP IVP ONE (08:09)
[2022-12-12] MEDS ORDERED: MIDAZOLAM 2 MG/2 ML VIAL ONE (08:48)
[2022-12-12] MEDS ORDERED: PROPOFOL 10 MG/ML 20 ML VIAL IV ONE (08:48)
[2022-12-12] MEDS ORDERED: SODIUM CHLORIDE 0.9% (PF) 10 ML VIAL ONE (08:48)
[2022-12-12] MEDS ORDERED: fentaNYL (PF) 50 MCG/ML 2 ML AMP ONE (08:48)
[2022-12-12] MEDS ORDERED: TRANEXAMIC 1,000 MG/100ML-NACL PREMIX BAG ONE (08:48)
[2022-12-12] MEDS ORDERED: ROPIVACAINE 5 MG/ML 30 ML VIAL ONE (08:48)
[2022-12-12] MEDS ORDERED: ceFAZolin 3,000 MG in SODIUM CHLORIDE 0.9% IRRIGATIO 3,000 ML IRRIGATION ONE (09:27)
[2022-12-12] MEDS ORDERED: HYDROcodone/APAP 7.5-325MG 1 EACH TAB PO PRN (10:36)
[2022-12-12] MEDS ORDERED: MAGNESIUM HYDROXIDE 2,400 MG/30 ML CUP PO PRN (10:36)
[2022-12-12] MEDS ORDERED: HYDROcodone/APAP 5-325MG 1 EACH TAB PO PRN (10:36)
[2022-12-12] MEDS ORDERED: HYDROmorphone 0.5 MG/0.5 ML SYRINGE IVP PRN (10:36)
[2022-12-12] MEDS ORDERED: NALOXONE 0.4 MG/ML 1 ML VIAL IV PRN (10:36)
--- NOTE | 2022-12-12 10:47 | P.OP ---
Date of Procedure: 12/12/22 Preoperative Diagnosis: Right knee severe tricompartmental osteoarthrosis Postoperative Diagnosis: Same Procedure(s) Performed: Right total knee arthroplastycementedposterior stabilized Implants: Depuy Attune size 5 narrow cemented femoral component, size 4 cemented tibial component, 10 mm articular surface, 32 mm cemented patellar component. This is a posterior stabilized implant. Anesthesia: regional, spinal Surgeon: Julio Cesar Mccollum Can Cutter #1: Jelani Kumar Estimated Blood Loss (ml): 50 Pathology: none sent Condition: stable Disposition: PACU Indications for Procedure: The patient is a 72-year-old female who presents with progressive right knee pain secondary to osteoarthrosis despite conservative measures. He discussion of the risks and benefits of operative intervention versus continued conservative measures was made with patient. She opted to proceed with surgery. Operative risks to include infection, neurovascular injury, development of blood clots, possible component loosening/failure, fracture, possible need for subsequent procedures was discussed. Informed consent was obtained. Operative Findings: As below Description of Procedure: The patient was brought to the operating room, and after induction of spinal anesthesia the right lower extremity was prepped and draped in a normal fashion. The tourniquet was inflated to 270 mm marker. A longitudinal incision extending 3 finger breaths above the superior pole of patella extending to the medial aspect the tibial tubercle was then made. The skin and subcutaneous tissues were divided sharply. Electrocautery was used for hemostasis. A medial parapatellar arthrotomy was performed. The medial soft tissues to include the superficial and deep portions of the medial collateral ligament were elevated subperiosteally. The patella was everted. A portion of the retropatellar fat pad was excised sharply. The anterior cruciate ligament was sacrificed. Blunt retractors were placed. A starting hole was made in the distal femur 1 cm anterior to the posterior cruciate ligament origin. An intramedullary femoral guide was then inserted planning on 5 valgus distal cut with 9 mm distal resection. The cutting block was pinned in place. The distal cut was then made. The posterior referencing sizing guide was utilized. I felt size 5 narrow was most appropriate. 3 of external rotation was built into the system and verified off the trans-epicondylar axis and the posterior condyles. The cutting block was pinned in place. The anterior, posterior, and chamfer cuts then made. Bone fragments were removed. The intercondylar guide was placed and the notch cut was made with a sagittal saw. The bone block was removed in one fragment. The trial component was then placed. There is good anterior to posterior and medial to lateral fit. The distal peg holes were drilled. The trial component was removed. Attention was then paid towards preparing the proximal tibia. An extra medullary guide was utilized in line with the tibial shaft and second metatarsal distally. I planned on 1 mm resection from the medial compartment. The cutting block was pinned in place. The proximal tibial cut was then made. The bone was removed in one fragment. The remnants of the medial and lateral menisci were excised at the capsular junction with electrocautery. The tibia sized most appropriately at size 4. The trial femoral and tibial components were placed along with a 10 mm articular surface. I was able to obtain full flexion and extension with internal and external rotat ion. After several flexion and extension cycles, the tibial rotation was marked with electrocautery line with the medial one third of the tibial tubercle. Attention was then paid towards preparing the patella. A patella reamer was utilized taking stem to 14 mm of bone stock. A good flush cut was made. The patella sized most appropriately 32 mm. The peg holes were drilled. The trial components placed. I had good patellofemoral tracking with no hands technique. The trial components were then removed. The tibia was prepared in the appropriate rotation with appropriate drill and keel punch. The posterior osteophytes were removed with a curved osteotome. The flexion and extension gaps were checked and felt to be symmetric at 10 mm. A trial components were then removed. The bony surfaces were prepared with pulsatile lavage and dried. The tibial component was then cemented place was fully seated. Excess cement was removed. The femoral component cemented place and was fully seated. Excess cement was removed. The trial 10 mm articular surface was placed and the knee was put in full extension. The patella component was cemented place. After the cement had sufficiently hardened, the knee was again taken through a range of motion. Again I was able to obtain full flexion and extension with varus and valgus stress. The trial 10 mm articular surface was removed and the final one inserted. This was fully seated. Care was taken to avoid any soft tissue interposition. Pulsatile lavage was again utilized. The medial parapatellar arthrotomy was closed with #2 Ethibond suture. The tourniquet was deflated with approximately 60 minutes total tourniquet time. Final hemostasis was obtained with the cautery. There was minimal bleeding therefore a deep drain was not placed. The subcutaneous tissues were reapproximated with interrupted 2-0 Vicryl sutures. The skin was reapproximated with 3-0 subcuticular strata fix suture. Skin tape and adhesive was applied. A sterile dressing was applied. The patient was awoken from sedation and transferred to recovery room in good condition. Blood loss was estimated at 50 mL. No complications were incurred. Sponge and needle counts were correct at the end of the case. Jelani JETT assisted during the major components of this case to include exposure, bone resection, implantation, and closure.
--- NOTE | 2022-12-12 10:53 | P.ANPRN ---
Procedure Note - Anesthesia - Nerve Block Performed Right Adductor Canal Infusion Time Out Performed: Yes (809) Date of Procedure: 12/12/22 Procedure Start Time: 08:10 Procedure Stop Time: 08:15 Location of Patient: PreOp Indication: Acute Post-Operative Pain, Requested by Surgeon Specifically requested for management of pain by : Julio Cesar Mccollum Sedation Type: Sedate with meaningful contact maintained Preparation: Sterile Prep Position: Supine Catheter Depth at Skin (cm): 6 Catheter: Indwelling Needle Types: Pajunk Needle Gauge: 18 Ultrasound used to visualize needle placement: Yes Ultrasound used to observe medication spread: Yes Injectate: 0.5% Ropivacaine (see comment for volume) (15cc +10cc nacll pf) Blood Aspirated: No Pain Paresthesia on Injection Noted: No Resistance on Injection: Normal Image Stored and Saved: Yes Events: Uneventful and Well Tolerated
--- NOTE | 2022-12-12 10:54 | P.ANPRN ---
Procedure Note - Anesthesia - Nerve Block Performed Right iPack Single Time Out Performed: Yes (08) Date of Procedure: 12/12/22 Procedure Start Time: 08:16 Procedure Stop Time: 08:18 Location of Patient: PreOp Indication: Acute Post-Operative Pain, Requested by Surgeon Specifically requested for management of pain by DrTj: Julio Cesar Mccollum Sedation Type: Sedate with meaningful contact maintained Preparation: Sterile Prep Position: Supine Catheter: None Needle Types: Pajunk Needle Gauge: 21 Ultrasound used to visualize needle placement: Yes Ultrasound used to observe medication spread: Yes Injectate: 0.5% Ropivacaine (see comment for volume) (15cc+ 10cc nacl pf) Blood Aspirated: No Pain Paresthesia on Injection Noted: No Resistance on Injection: Normal Image Stored and Saved: Yes Events: Uneventful and Well Tolerated
[2022-12-12] MEDS ORDERED: ROPIVACAINE 1,100 MG, SODIUM CHLORIDE 0.9% 500 ML 330 ML, EMPTY PAIN BALL 1 EACH MISCELLANE PRN ×2 (11:10)
--- NOTE | 2022-12-12 11:16 | XR ---
EXAMINATION TYPE: XR knee limited RT DATE OF EXAM: 12/12/2022 COMPARISON: NONE HISTORY: 72-year-old female evaluation for postoperative abnormality and alignment TECHNIQUE: 2 views FINDINGS: There is placement of right total knee arthroplasty. Both distal femoral and proximal tibia l components of the prosthesis appear well seated without prosthetic fracture. Alignment grossly emory omic. Anterior soft tissue swelling with soft tissue air as well as intra-articular air related to re cent operation. IMPRESSION: Uncomplicated postoperative appearance right total knee arthroplasty.
[2022-12-12] MEDS ORDERED: LACTATED RINGERS 1,000 ML IV ONE ×2 (13:00)
[2022-12-12] MEDS: fentaNYL (PF) 50 MCG/ML 2 ML AMP IV PRN ×2 (13:11→14:39)
[2022-12-12 14:59] LABS: Glucose,Whole Blood 233 mg/dL (70-110)
[2022-12-12] MEDS ORDERED: INSULIN ASPART (NovoLOG) 100 UNIT/ML VIAL SQ ONE (15:15)
[2022-12-12] MEDS ORDERED: ONDANSETRON 4 MG/2 ML VIAL IVP PRN (16:09)
[2022-12-12] MEDS: HYDROmorphone 0.5 MG/0.5 ML SYRINGE IVP PRN ×2 (16:22→22:26)
[2022-12-12] MEDS ORDERED: DEXTROSE 50% SYRINGE 50 ML IVP PRN ×2 (16:34)
[2022-12-12] MEDS ORDERED: NITROGLYCERIN SL TABS 0.4 MG TAB SUBLINGUAL PRN (16:34)
[2022-12-12] MEDS: amLODIPine 5 MG TAB PO SCH (16:53)
[2022-12-12 16:58] LABS: Glucose,Whole Blood 290 mg/dL (70-110)
[2022-12-12] MEDS: INSULIN ASPART (NovoLOG) 100 UNIT/ML VIAL SQ SCH ×2 (17:07→21:56)
[2022-12-12] MEDS: metFORMIN 850 MG TAB PO SCH (17:21)
[2022-12-12 19:23] LABS: Glucose,Whole Blood 207 mg/dL (70-110)
[2022-12-12] MEDS ORDERED: SENNOSIDES-DOCUSATE SODIUM 1 EACH TAB PO SCH (21:00)
[2022-12-12] MEDS ORDERED: ATORVASTATIN 20 MG TAB PO SCH (21:00)
[2022-12-12] MEDS ORDERED: FAMOTIDINE 20 MG TAB PO SCH (21:00)
--- NOTE | 2022-12-12 21:46 | CONS ---
CONSULTATION REASON FOR CONSULTATION: Advice regarding diabetes mellitus and other medical issues, requested by Orthopedic Surgery. HISTORY OF PRESENT ILLNESS: This is a 72-year-old woman with a past medical history of diabetes mellitus, hypertension, hyperlipidemia, underwent right total knee arthroplasty. There is no history of any fever, rigors, or chills at this time. The Accu-Cheks were 233. PAST MEDICAL HISTORY: Reviewed include diabetes mellitus, GERD, hypertension, hyperlipidemia. Rest of the history and rest of the chart is also reviewed. HOME MEDICATIONS: Lipitor. Dose and rest of medications reviewed. ALLERGIES: Lortab. FAMILY HISTORY: History of breast cancer. SOCIAL HISTORY: No history of smoking. Rare alcohol. REVIEW OF SYSTEMS: A 14-point review is negative except as mentioned earlier. PHYSICAL EXAMINATION: VITAL SIGNS: Pulse 90, blood pressure 161/70, respirations 16. HEENT: Conjunctivae normal. NECK: No JVD. CARDIOVASCULAR: S1, S2 muffled. RESPIRATIONS: Breath sounds diminished at the bases. ABDOMEN: Soft. LEGS: Status post right knee arthroplasty. NERVOUS SYSTEM: Nonfocal. LABORATORY DATA: Accu-Cheks noted. ASSESSMENT: 1. Status post right total knee joint arthroplasty. 2. Diabetes mellitus, type 2. 3. Gastroesophageal reflux disease. 4. Hypertension. 5. Hyperlipidemia. 6. Degenerative joint disease. 7. Multiple medical issues. 8. History of coronary artery disease stent. RECOMMENDATIONS AND DISCUSSION: Recommend to continue current medical management and resume the home medications. DVT prophylaxis. Otherwise, I would recommend continue the rest of medications. Prognosis guarded because of multiple complex medical problems. See orders for further details. MMODL / IJN: [id number] /
[2022-12-12] MEDS: ONDANSETRON 4 MG/2 ML VIAL IVP PRN (22:25)
[2022-12-13] MEDS: HYDROmorphone 0.5 MG/0.5 ML SYRINGE IVP PRN ×2 (02:32→05:59)
[2022-12-13 05:48] LABS: Glucose,Whole Blood 212 mg/dL (70-110)
[2022-12-13] MEDS: ONDANSETRON 4 MG/2 ML VIAL IVP PRN (05:59)
--- NOTE | 2022-12-13 06:23 | P.PN ---
Progress Note - Text Progress Note Date: 12/13/22 (0614) Anesthesiology Postop day 1 status post total knee arthroplasty with adductor canal catheter. Patient doing well. VAS 6 out of 10. Rest able. Gross strength intact in lower extremity. Afebrile. Denies alterations in sensorium. Catheter site intact. Heart regular rate Lungs nonlabored Abdomen nondistended Assessment: Postop day 1 status post total knee arthroplasty with adductor canal catheter Plan: 1.All questions answered. Maintain catheter 2 more days with patient removal at home. Instructions to be given at discharge. 2.This note was dictated using Hango software. Please be advised there is a potential for misspellings or errors in conveyor tender.
[2022-12-13] MEDS ORDERED: PANTOPRAZOLE 40 MG TABLET PO SCH ×2 (07:30→21:00)
[2022-12-13] MEDS: LACTATED RINGERS 1,000 ML IV SCH ×2 (07:36)
[2022-12-13] MEDS: amLODIPine 5 MG TAB PO SCH (07:44)
[2022-12-13] MEDS: metFORMIN 850 MG TAB PO SCH (07:46)
[2022-12-13] MEDS ORDERED: traMADol 50 MG TAB PO PRN (07:56)
[2022-12-13] MEDS: INSULIN ASPART (NovoLOG) 100 UNIT/ML VIAL SQ SCH ×2 (08:03→12:18)
[2022-12-13 08:36] VITALS: RESP 15
[2022-12-13] MEDS ORDERED: CLOPIDOGREL 75 MG TAB PO SCH (09:00)
[2022-12-13] MEDS ORDERED: RIVAROXABAN 10 MG TAB PO SCH (09:00)
[2022-12-13] MEDS ORDERED: LISINOPRIL-HCTZ 20-12.5 MG 1 EACH TAB PO SCH (09:00)
[2022-12-13] MEDS ORDERED: ASPIRIN 81 MG PO SCH (09:00)
--- NOTE | 2022-12-13 09:39 | P.DS ---
Providers Date of admission: 12/12/2022 Expected date of discharge: 12/13/22 Attending physician: Julio Cesar Mccollum Consults: 12/12/22 10:36 Consult Physician Routine Consulting Provider: Jefry Nuñez Consult Reason/Comments: s/p right total knee arthroplasty Do you want consulting provider notified?: Yes Primary care physician: Lenin Valerio MD Hospital Course: Date of admission: 12/12/2022 Date of discharge: 12/13/2022 Admission diagnosis: Right knee osteoarthritis Discharge diagnosis: Same Attending physician: Dr. Mccollum Surgical procedures: Right total knee arthroplasty Brief history: Patient is a 72-year-old female with a history of progressive primary right knee osteoarthritis. At this point patient has failed conservative treatment measures and has opted to proceed with a elective right total knee arthroplasty. Hospital course: Details of patient's surgery can be found in operative report. Patient tolerated the procedure well and was subsequently transported to orthopedic floor. Patient's orthopeidc and medical care was provided daily. Patient had daily laboratory tests performed for evaluation of overall blood counts. Patient had daily physical therapy to include strengthening range of motion as well as education with walker ambulation. Patient was treated with Plavix for their postoperative DVT prophylaxis during their inpatient stay. Patient was noted to have a relatively uneventful postoperative course. Patient reported satisfactory pain control with oral pain medications by postoperative day 1. Patient showed satisfactory progress with physical therapy. Patient moved steadily through the program and had no difficulty meeting the goals by postoperative day 1. Given patient's otherwise satisfactory course and having met physical therapy goals, plan is to discharge patient home with health services on postoperative day 1. Discharge condition/disposition: Patient will be discharged home with health services in stable condition. Discharge medications: Instructions are given on resumption of patient's normal daily medications per primary care recommendation, in addition patient will be prescribed tramadol; senna. Patient is to resume Plavix 75 mg daily at home for 30 days. Discharge instructions: 1. Wound care and infection precautions, keep incision dry and covered while showering, no lotions, creams, moisturizers. No soaking, tubs, pools, hottubs. Do not scrub over the incision. 2. Weight-bear as tolerated with walker / cane until follow-up. 3. Ice and elevate when necessary. Do not exceed 20 minutes per hour with ice pack. 4. Utilize compression sleeve until seen at first follow up appointment. 5. Visiting nursing care. 6. Home physical therapy including home CPM. 7. Pain meds and anticoagulants per prescription. 8. Pain medication has potential to cause constipation. Increase oral fluid and fiber intake. Contact primary care provider if you have not had a bowel movement within 48 hours after discharge 9. No anti-inflammatory medication until discussed at first post operative visit, this including Motrin, Aleve, Mobic, Diclofenac. 10. Follow up in office at 2 weeks postop with Gaurav Mullen PA-C / Jelani Kumar PA-C 11. Follow up with your primary care doctor 7-10 days after discharge. 12. Contact [facility] with any questions, . Assessment: Right knee osteoarthritis Procedures: Right total knee arthroplasty Patient Condition at Discharge: Good Plan - Discharge Summary Discharge Rx Participant: No New Discharge Prescriptions: New Sennosides/Docusate Sodium [Senna Plus 8.6-50 mg Softgel] 1 each PO DAILY #20 capsule traMADol HCL 50 mg PO Q6H #28 tab No Action metFORMIN HCL [Glucophage] 850 mg PO BID Etodolac [Lodine] 400 mg PO BID Atorvastatin [Lipitor] 20 mg PO HS Aspirin 81 mg PO DAILY Lisinopril-Hctz 20-12.5 mg [Zestoretic 20-12.5] 1 tab PO DAILY Famotidine 20 mg PO HS Nitroglycerin Sl Tabs [Nitrostat] 0.4 mg SUBLINGUAL Q5M PRN #25 tab PRN Reason: Chest Pain amLODIPine BESYLATE 5 mg PO DAILY Discharge Medication List Aspirin 81 mg PO DAILY 12/28/17 [History] Atorvastatin [Lipitor] 20 mg PO HS 12/28/17 [History] Etodolac [Lodine] 400 mg PO BID 12/28/17 [History] metFORMIN HCL [Glucophage] 850 mg PO BID 12/28/17 [History] Lisinopril-Hctz 20-12.5 mg [Zestoretic 20-12.5] 1 tab PO DAILY 12/15/21 [ History] Nitroglycerin Sl Tabs [Nitrostat] 0.4 mg SUBLINGUAL Q5M PRN #25 tab 12/19/21 [Rx] Famotidine 20 mg PO HS 12/06/22 [History] amLODIPine BESYLATE 5 mg PO DAILY 12/06/22 [History] Sennosides/Docusate Sodium [Senna Plus 8.6-50 mg Softgel] 1 each PO DAILY #20 capsule 12/13/22 [Rx] traMADol HCL 50 mg PO Q6H #28 tab 12/13/22 [Rx] Follow up Appointment(s)/Referral(s): Jelani Kumar, ZACKERY [PHYSICIAN PROGRAM SCHEDULER] - 2 Weeks Patient Instructions/Handouts: Knee Replacement (DC) Activity/Diet/Wound Care/Special Instructions: Orthopedic Discharge Instructions: 1. Wound care and infection precautions, keep incision dry and covered while showering, no lotions, creams, moisturizers. No soaking, pools, hot tubs. Do not scrub over incision. 2. Weight-bear as tolerated with walker / cane until follow-up. 3. Ice and elevate when necessary. Do not exceed 20 minutes per hour with ice pack. 4. Utilize compression sleeve until seen at first follow up appointment. 5. Pain meds and anticoagulants per prescription. 6. Pain medication has potential to cause constipation. Increase oral fluid and fiber intake. Contact primary care provider if you have not had a bowel movement within 48 hours after discharge. 7. No anti-inflammatory medication until discussed at first post operative visit, this including Motrin, Aleve, Mobic, Diclofenac. 8. Follow up in office at 2 weeks postop with Gaurav Mullen PA-C / Jelani Kumar PA-C 9. Follow up with your primary care doctor 7-10 days after discharge. 10. Contact [facility] with any questions, . Keep incision clean, dry, intact. While showering, cover fusion tape with Saran wrap. Keep fusion tape on until follow-up appointment in office in 2 weeks. Discharge Disposition: HOME WITH HOME HEALTH SERVICES
--- NOTE | 2022-12-13 09:49 | P.PN ---
Subjective Progress Note Date: 12/13/22 Principal diagnosis: Right knee osteoarthritis Patient was seen at bedside this morning lying in semirecumbent position. Patient says hydrocodone has made her nauseous. Patient says the Zofran has help with the nausea. Patient says she has been up walking the bathroom several times since surgery yesterday using a walker. Patient says she does not have a walker at home. Patient is hoping she can go home later this afternoon. Patient says she is staying at her [id number] house. Patient has not yet worked with physical therapy. Patient says she has not had a bowel movement yet, however, patient says she has been passing gas. Patient denies chest pain, fever, shortness breath, nausea, vomiting, change in vision, loss of bowel/bladder control. Objective - Vital Signs Vital signs: Vital Signs Temp 98.3 F 12/13/22 07:15 Pulse 101 H 12/13/22 07:15 Resp 15 12/13/22 07:15 BP 167/76 12/13/22 07:15 Pulse Ox 99 12/13/22 07:15 FiO2 Intake & Output 12/12/22 12/13/22 12/13/22 18:59 06:59 18:59 Intake Total 1351 Output Total 450 400 Balance 901 -400 Weight 75.7 kg Intake: IV 1351 Output: Urine 400 400 Estimated Blood Loss 50 Other: Voiding Method Toilet # Voids 5 - Exam Right knee: Incision is clean, dry, and intact. The exofin fusion tape is in good con dition. There is minimal soft tissue swelling and ecchymosis surrounding the medial and lateral aspects of the incision. Calf is soft, no tenderness with palpation. Plantar flexion, dorsiflexion, EHL, FHL are intact. Sensory exam to light touch throughout the extremity is intact, dorsal pedis pulses 2+. - Labs Labs: Abnormal Lab Results - Last 24 Hours (Table) 12/12/22 12/12/22 12/12/22 Range/Units 14:57 16:56 19:20 POC Glucose (mg/dL) 233 H 290 H 207 H (70-110) mg/dL 12/13/22 Range/Units 05:47 POC Glucose (mg/dL) 212 H (70-110) mg/dL Assessment and Plan Assessment: Right knee osteoarthritis - Postoperative day #1 status post right total knee arthroplasty Plan: 1. Right knee osteoarthritis - right total knee arthroplasty performed yesterday, 12/12/2022. Patient stable at bedside this morning. Prescription for walker was signed. Pending PT/OT evaluation, plan for discharge home with health services later today. 2. Appreciate medical management 3. Pain management - tramadol 4. DVT prophylaxis - resume Plavix 75 mg daily at home 5. GI prophylaxis - senna 6. PT/OT - weightbearing as tolerated with walker 7. Encourage incentive spirometer use 8. Discharge planning - discharge home today with health services Time with Patient: Less than 30
[2022-12-13] MEDS ORDERED: ONDANSETRON 4 MG/2 ML VIAL IVP PRN (11:07)
[2022-12-13 11:17] LABS: Basophils # (A) 0.04 X 10*3/uL (0.00-0.10); Basophils % (A) 0.4 %; Eosinophils # (A) 0.01 X 10*3/uL (0.04-0.35); Eosinophils % (A) 0.1 %; HCT 28.2 % (37.2-46.3); HGB 9.3 d/dL (12.0-15.0); Lymphocytes # (A) 0.89 X 10*3/uL (0.90-5.00); Lymphocytes % (A) 8.6 %; MCH 27.9 pg (27.0-32.0); MCV 84.7 FL (80.0-97.0); Mean Platelet Volume 11.3 FL (9.5-12.2); Monocytes # (A) 1.01 X 10*3/uL (0.20-1.00); Monocytes % (A) 9.8 %; NRBC Per 100 WBC 0 X 10*3/uL (0.00-0.01); Neutrophils # (A) 8.36 X 10*3/uL (1.80-7.70); Neutrophils % (A) 80.8 %; Platelet Count 256 X 10*3/uL (140-440); RBC 3.33 X 10*6/uL (4.10-5.20); RDW 13.1 % (11.5-14.5); WBC 10.34 X 10*3/uL (4.50-10.00)
[2022-12-13 11:37] LABS: Glucose,Whole Blood 228 mg/dL (70-110)
--- NOTE | 2022-12-13 12:36 | PN ---
PROGRESS NOTE DATE OF SERVICE: 12/13/2022 SUBJECTIVE: This is a 72-year-old woman, who was admitted after right knee arthroplasty, is complaining of some pain. The patient is extremely nauseous and intolerant to multiple pain medications. No chest pain. No palpitation. OBJECTIVE: VITAL SIGNS: Pulse is 81, blood pressure 135/65, respirations 18. CHEST: Clear to auscultation. CARDIOVASCULAR: S1, S2. ABDOMEN: Soft. LEGS: Status post surgery. LABORATORY DATA: Reviewed. ASSESSMENT: 1. Status post right total knee arthroplasty. 2. Postoperative nausea. 3. Diabetes mellitus type 2. 4. Gastroesophageal reflux disease. 5. Hypertension. 6. Multiple medical issues. RECOMMENDATIONS: I recommend to continue current medical management and continue symptomatic treatment. Otherwise, Zofran q.4 p.r.n. 4 mg, Protonix 40 p.o. b.i.d., and continue DVT prophylaxis. Repeat labs. Closely follow with Orthopedic Surgery. Further recommendations to follow. MMODL / IJN: [id number] /
[2022-12-13 14:39] VITALS: BP 148/77; PULSE 89; TEMP 98.1
[2022-12-13 16:48] LABS: Glucose,Whole Blood 169 mg/dL (70-110)
== END 2022-12-13 19:09 | disposition home health service (06) ==
LOC: OR 06:29 → 4SSUR 10:43 → OR 12-13 19:09
PROVIDERS: ATTEND Orthopaedic Surgery
DX: M17.11 Unilateral primary osteoarthritis, right knee (principal); G89.18 Other acute postprocedural pain; E11.9 Type 2 diabetes mellitus without complications; K21.9 Gastro-esophageal reflux disease without esophagitis; E78.5 Hyperlipidemia, unspecified; I10 Essential (primary) hypertension; Z90.49 Acquired absence of other specified parts of digestive tract; Z95.5 Presence of coronary angioplasty implant and graft; Z80.3 Family history of malignant neoplasm of breast; Z82.49 Family history of ischemic heart disease and other diseases of the circulatory system; Z79.899 Other long term (current) drug therapy
CPT/HCPCS: 97162; 64999; 64448; 85025; 83036; 73560; 27447; C1713 ×2; C1776; C1751; J2250; J1100; J0690 ×3; J2405 ×2; J3010; J2795; J1170 ×2; J1790

== ENCOUNTER → 2023-02-22 | Outpatient (CLI) | payer MEDICARE, OTHER ==
--- NOTE | 2023-02-25 16:40 | MM ---
Reason for Exam: Screening (asymptomatic). Last mammogram was performed 1 year(s) and 1 month(s) ago. Patient History: Menarche at age 9. First Full-Term at age 17. Postmenopausal. 1997, Benign Excisional Biopsy on the left side. 11/24/2014, Benign Core Biopsy on the left side. Maternal grandmother had breast cancer. Mother had breast cancer. Risk Values: Sue 5 year model risk: 5.4%. NCI Lifetime model risk: 12.7%. Prior Study Comparison: 01/08/2020 Bilateral Screening Mammogram, [facility]. 01/20/2021 Bilateral Screening Mammogram, [facility]. 01/23/2022 Bilateral MG 3D screening mammo w/cad, [facility]. Tissue Density: There are scattered fibroglandular densities. Findings: Analyzed By CAD. Scattered benign round and vascular calcifications redemonstrated. Chronic nodularity with associated microclip subareolar left breast from prior biopsy. There is no suspicious group of microcalcifications or new suspicious mass in either breast. Overall Assessment: Benign, BI-RAD 2 Management: Screening Mammogram of both breasts in 1 year. See note below in regards to patient's increased five-year Sue score. Patient should continue monthly self-breast exams. A clinical breast exam by your physician is recommended on an annual basis. This exam should not preclude additional follow-up of suspicious palpable abnormalities. Note on Sue scores and lifetime risk: 1. A Sue score greater than 3% is considered moderate risk. If this is the case, consider specialist referral to assess eligibility for a risk reducing agent. 2. If overall lifetime risk for the development of breast cancer is 20% or higher, the patient may qualify for future screening with alternating mammogram and breast MRI. Electronically signed and approved by: Dante Kraft M.D. Radiologist
== END | disposition home or self-care (01) ==
LOC: RADMAMWWP 15:23
PROVIDERS: ATTEND Internal Medicine
DX: Z12.31 Encounter for screening mammogram for malignant neoplasm of breast (principal); Z78.0 Asymptomatic menopausal state; Z80.3 Family history of malignant neoplasm of breast
CPT/HCPCS: 77063; 77067

== ENCOUNTER → 2023-10-10 | Outpatient (CLI) | payer MEDICARE ==
[2023-10-10 11:00] LABS: Basophils # (A) 0.1 k/uL (0-0.2); Basophils % (A) 2 %; Eosinophils # (A) 0.4 k/uL (0-0.7); Eosinophils % (A) 6 %; HCT 35.2 % (34.0-46.0); HGB 11.4 gm/dL (11.4-16.0); Lymphocytes % (A) 17 %; MCH 28.5 pg (25.0-35.0); MCHC 32.2 g/dL (31.0-37.0); MCV 88.3 fL (80.0-100.0); Monocytes # (A) 0.5 k/uL (0-1.0); Monocytes % (A) 8 %; Neutrophils # (A) 3.9 k/uL (1.3-7.7); Neutrophils % (A) 64 %; Platelet Count 306 k/uL (150-450); RBC 3.99 m/uL (3.80-5.40); RDW 14.2 % (11.5-15.5)
[2023-10-10 15:41] LABS: ALT 15 U/L (8-44); AST 19 U/L (13-35); Alkaline Phosphatase 75 U/L (41-126); Blood Urea Nitrogen 13.5 mg/dL (9.0-27.0); Calcium 10.1 mg/dL (8.7-10.3); Carbon Dioxide 21.8 mmol/L (21.6-31.8); Chloride 104 mmol/L (96-109); Chol/HDL Ratio 2.82 Ratio; Glucose 149 mg/dL (70-110); LDL Cholesterol,Calculated 57.3 mg/dL (0.0-131.0); Potassium 4.8 mmol/L (3.5-5.5); Sodium 136 mmol/L (135-145); Total Bilirubin 0.6 mg/dL (0.3-1.2)
[2023-10-10 16:07] LABS: INR 0.96 sec (0.93-1.11); Prothrombin Time 10.4 sec (9.9-11.9)
== END | disposition home or self-care (01) ==
LOC: LABPAT 09:50
PROVIDERS: ATTEND Orthopaedic Surgery
DX: Z01.812 Encounter for preprocedural laboratory examination (principal); M17.12 Unilateral primary osteoarthritis, left knee; E11.9 Type 2 diabetes mellitus without complications; E78.2 Mixed hyperlipidemia; Z22.322 Carrier or suspected carrier of Methicillin resistant Staphylococcus aureus
CPT/HCPCS: 80053; 80061; 82043; 82570; 83036; 85025; 85610; 87070

== ENCOUNTER 2023-11-06 05:50 | Day surgery (SDC) | payer MEDICARE, OTHER ==
--- NOTE | 2023-11-04 09:02 | P.HPOR ---
History of Present Illness H&P Date: 11/04/23 Chief Complaint: Left knee pain The patient is a 73-year-old retired female who presents with progressive left knee pain for the past several years. It has worsened recently. She has anterior medial pain along with swelling and stiffness. She has intermittent locking and giving way. She's tried medications in addition to previous injections without much relief. Review of Systems As per HPI Past Medical History Past Medical History: Diabetes Mellitus, GERD/Reflux, Hyperlipidemia, Hypertension, Osteoarthritis (OA) Additional Past Medical History / Comment(s): pinched nerve in neck-got pain injection to help-did work, had fainting spell in May. in [place]-had cardiac testing, wore monitor, all testing wnl per pt. History of Any Multi-Drug Resistant Organisms: None Reported Past Surgical History: Breast Surgery, Cholecystectomy, Heart Catheterization With Stent, Joint Replacement, Orthopedic Surgery Additional Past Surgical History / Comment(s): shoulder scope; Lipoma x 2; benign breast biopsy, cataracts, right knee replaced, laser procedure left eye Past Anesthesia/Blood Transfusion Reactions: No Reported Reaction Date of Last Stent Placement:: 12/25/21 Smoking Status: Never smoker - Past Family History Mother Family Medical History: Cancer Additional Family Medical History / Comment(s): Breast CA Father Family Medical History: Coronary Artery Disease (CAD), Diabetes Mellitus, Hypertension Medications and Allergies Home Medications Medication Instructions Recorded Confirmed Type Aspirin 81 mg PO DAILY 12/28/17 11/02/23 History Atorvastatin [Lipitor] 40 mg PO HS 12/28/17 11/02/23 History Etodolac [Lodine] 400 mg PO BID 12/28/17 11/02/23 History metFORMIN HCL [Glucophage] 1,000 mg PO BID 12/28/17 11/02/23 History Famotidine 20 mg PO HS 12/06/22 11/02/23 History amLODIPine BESYLATE 5 mg PO DAILY 12/06/22 11/02/23 History Latanoprost Ophth [Xalatan 0.005%] 1 drops BOTH EYES HS 11/02/23 11/02/23 History lisinopriL [Zestril] 20 mg PO BID 11/02/23 11/02/23 History Allergies Allergy/AdvReac Type Severity Reaction Status Date / Time hydrocodone [From Lortab] AdvReac Nausea & Verified 12/12/22 07:35 Vomiting morphine AdvReac Nausea & Verified 12/12/22 07:35 Vomiting Physical Examination - Knee left Appearance: effusion Effusion grade: grade 2 Varus alignment in stance: 10 degrees Tenderness with palpation: anterior, medial Pain: throughout ROM Gait: limping ROM: extension: -15 degrees ROM: flexion: 100 degrees Crepitus with motion: Yes Strength: extension: 5/5 Strength: flexion: 5/5 Meniscal tests: medial meniscal tests: positive, medial joint line pain: positive Results Patient is a well-developed well-nourished female approximately 5 foot 1, 165 pounds of endomorphic habitus. HEENT exam is nonfocal, neck is supple. She has painless passive motion of the left hip. Straight leg raise is negative. Her distal neurovascular appears intact in the left lower extremity. - Diagnostic results Knee x-ray: image reviewed (3 views of the left knee obtained in the office show severe medial and patellofemoral compartment osteoarthrosis with subchondral sclerosis and swsw-of-maak changes.) Assessment and Plan Assessment: Left knee severe medial and patellofemoral compartment osteoarthrosis Plan: I talked to the patient at length regarding her condition and treatment options. At this point she is quite symptomatic having pain and mechanical symptoms related to her left knee osteoarthrosis despite conservative measures. After a thorough discussion she opts to proceed with surgery. We will plan to proceed with left total knee arthroplasty. Risks and benefits were discussed at length in layman's terms. We will institute DVT prophylaxis postoperatively.
[~2023-11-06 05:50] MED LIST changes: -ACETAMINOPHEN TAB 500 MG TAB PO PRN; -MELOXICAM 7.5 MG TAB PO PRN
[2023-11-06] MEDS: IV FLUID CONTINUATION 1,000 ML IV ONE (06:20)
[2023-11-06] MEDS: ACETAMINOPHEN TAB 500 MG TAB PO PRN (06:53)
[2023-11-06] MEDS: MELOXICAM 7.5 MG TAB PO PRN (06:54)
[2023-11-06] MEDS: LACTATED RINGERS 1,000 ML IV SCH (06:55)
[2023-11-06] MEDS: ONDANSETRON 4 MG/2 ML VIAL IVP ONE (06:55)
[2023-11-06] MEDS: DEXAMETHASONE SOD PHOSPHATE 4 MG/ML 1 ML VIAL IV ONE (06:55)
[2023-11-06] MEDS ORDERED: fentaNYL (PF) 50 MCG/ML 2 ML AMP IV PRN (07:00)
[2023-11-06] MEDS ORDERED: MIDAZOLAM 2 MG/2 ML VIAL IV PRN (07:00)
[2023-11-06 07:05] LABS: Glucose,Whole Blood 178 mg/dL (70-110)
[2023-11-06] MEDS: MIDAZOLAM 2 MG/2 ML VIAL IVP ONE (07:06)
[2023-11-06] MEDS ORDERED: MIDAZOLAM 2 MG/2 ML VIAL ONE (07:34)
[2023-11-06] MEDS ORDERED: DEXAMETHASONE SOD PHOSPHATE 4 MG/ML 1 ML VIAL ONE (07:34)
[2023-11-06] MEDS ORDERED: fentaNYL (PF) 50 MCG/ML 2 ML AMP ONE (07:34)
[2023-11-06] MEDS ORDERED: ROPIVACAINE 5 MG/ML 30 ML VIAL ONE (07:34)
[2023-11-06] MEDS ORDERED: TRANEXAMIC 1,000 MG/100ML-NACL PREMIX BAG ONE (07:34)
[2023-11-06] MEDS ORDERED: PROPOFOL 10 MG/ML 20 ML VIAL IV ONE (07:34)
[2023-11-06] MEDS ORDERED: PHENYLEPHRINE 10 MG/ML VIAL ONE (07:34)
[2023-11-06] MEDS: ceFAZolin 1,000 MG in SODIUM CHLORIDE 0.9% 1,000 ML IRRIGATION ONE (08:07)
[2023-11-06] MEDS ORDERED: MAGNESIUM HYDROXIDE 2,400 MG/30 ML CUP PO PRN (09:15)
[2023-11-06] MEDS ORDERED: HYDROcodone/APAP 5-325MG 1 EACH TAB PO PRN (09:15)
[2023-11-06] MEDS ORDERED: NALOXONE 0.4 MG/ML 1 ML VIAL IV PRN (09:15)
[2023-11-06] MEDS ORDERED: HYDROmorphone 0.5 MG/0.5 ML SYRINGE IVP PRN (09:15)
--- NOTE | 2023-11-06 09:38 | P.OP ---
Date of Procedure: 11/06/23 Preoperative Diagnosis: Left knee severe tricompartmental osteoarthrosis Postoperative Diagnosis: Same Procedure(s) Performed: Left total knee arthroplastycementedposterior stabilized Implants: Depuy Attune size 5 cemented femoral component, size 4 cemented tibial component, 13 mm articular surface, 32 mm cemented patellar component. There is a posterior stabilized implant. Anesthesia: regional, spinal Surgeon: Julio Cesar Mccollum Posting Machine Operator #1: Jelani Kumar Estimated Blood Loss (ml): 50 Pathology: none sent Condition: stable Disposition: PACU Indications for Procedure: The patient is a 73-year-old female who presents with progressive left knee pain secondary to osteoarthrosis despite conservative measures. A discussion of the risks and benefits of operative intervention versus continued conservative measures was made with the patient. She opted to proceed with surgery. Operative risks include infection, neurovascular injury, fracture, development of blood clots, possible component loosening/failure and possible need for subsequent procedures was discussed. Informed consent was obtained. Operative Findings: As below Description of Procedure: The patient was brought to the operating room, and after induction of spinal anesthesia the left lower extremity was prepped and draped in a normal fashion. The tourniquet was inflated to 270 mm marker. A longitudinal incision extending 3 finger breaths above the superior pole of patella extending to the medial aspect the tibial tubercle was then made. The skin and subcutaneous tissues were divided sharply. Electrocautery was used for hemostasis. A medial parapatellar arthrotomy was performed. The medial soft tissues to include the superficial and deep portions of the medial collateral ligament were elevated subperiosteally. The patella was everted. A portion of the retropatellar fat pad was excised sharply. The anterior cruciate ligament was sacrificed. Blunt retractors were placed. A starting hole was made in the distal femur 1 cm anterior to the posterior cruciate ligament origin. An intramedullary femoral guide was then inserted planning on 5 valgus distal cut with 9 mm distal resection. The cutting block was pinned in place. The distal cut was then made. The posterior referencing sizing guide was utilized. I felt size 5 was most appropriate. 3 of external rotation was built into the system and verified off the trans-epicondylar axis and the posterior condyles. The cutting block was pinned in place. The anterior, posterior, and chamfer cuts then made. Bone fragments were removed. The intercondylar guide was placed and the notch cut was made with a sagittal saw. The bone block was removed in one fragment. The trial component was then placed. There is good anterior to posterior and medial to lateral fit. The distal peg holes were drilled. The trial component was removed. Attention was then paid towards preparing the proximal tibia. An extra medullary guide was utilized in line with the tibial shaft and second metatarsal distally. I planned on 0 mm resection from the medial compartment. The cutting block was pinned in place. The proximal tibial cut was then made. The bone was removed in one fragment. The remnants of the medial and lateral menisci were excised at the capsular junction with electrocautery. The tibia sized most appropriately at size 4. The trial femoral and tibial components were placed along with a 13 mm articular surface. I was able to obtain full flexion and extension with internal and external rotation. After several flexion and extension cycles, the tibial rotation was marked with electrocautery line with the medial one third of the tibial tubercle. Attention was then paid towards preparing the patella. A patella reamer was utilized taking stem to 14 mm of bone stock. A good flush cut was made. The patella sized most appropriately 32 mm. The peg holes were drilled. The trial components placed. I had good patellofemoral tracking with no hands technique. The trial components were then removed. The tibia was prepared in the appropriate rotation with appropriate drill and keel punch. The posterior osteophytes were removed with a curved osteotome. The flexion and extension gaps were checked and felt to be symmetric at 13 mm. A trial components were then removed. The bony surfaces were prepared with pulsatile lavage and dried. The tibial component was then cemented place was fully seated. Excess cement was removed. The femoral component cemented place and was fully seated. Excess cement was removed. The trial 13 mm articular surface was placed and the knee was put in full extension. The patella component was cemented place. After the cement had sufficiently hardened, the knee was again taken through a range of motion. Again I was able to obtain full flexion and extension with varus and valgus stress. The trial 13 mm articular surface was removed and the final one inserted. This was fully seated. Care was taken to avoid any soft tissue interposition. Pulsatile lavage was again utilized. The medial parapatellar arthrotomy was closed with #2 Ethibond suture. The tourniquet was deflated with approximately 60 minutes total tourniquet time. Final hemostasis was obtained with the cautery. There was minimal bleeding therefore a deep drain was not placed. The subcutaneous tissues were reapproximated with interrupted 2-0 Vicryl sutures. The skin was reapproximated with 3-0 subcuticular strata fix suture. Skin tape and adhesive was applied. A sterile dressing was applied. The patient was awoken from sedation and transferred to recovery room in good condition. Blood loss was estimated at 50 mL. No complications were incurred. Sponge and needle counts were correct at the end of the case. Jelani JETT assisted during the major components of this case to include exposure, bone resection, implantation, and closure.
[2023-11-06] MEDS: ROPIVACAINE 1,100 MG, SODIUM CHLORIDE 0.9% 500 ML 330 ML, EMPTY PAIN BALL 1 EACH MISCELLANE PRN (09:57)
--- NOTE | 2023-11-06 10:10 | XR ---
EXAMINATION TYPE: XR knee limited LT DATE OF EXAM: 11/06/2023 10:04 AM CLINICAL INDICATION:Female, 73 years old with history of Evaluation for Postop abnormality and alignm ent; [facility] COMPARISON: None. TECHNIQUE: XR knee limited LT; examined in Frontal, lateral and oblique projections. FINDINGS: Status post total knee arthroplasty changes with hardware in appropriate alignment and in tact. No evidence of fracture. Subcutaneous lucencies and lucencies within the joint consistent with surgical changes. Sclerosis of the arterial vasculature. IMPRESSION: Status post total knee arthroplasty changes with hardware intact and appropriate alignment. No fractu res identified.
--- NOTE | 2023-11-06 10:44 | P.ANPRN ---
Procedure Note - Anesthesia - Nerve Block Performed Left Adductor Canal Infusion Time Out Performed: Yes Date of Procedure: 11/06/23 Procedure Start Time: 07:05 Procedure Stop Time: 07:15 Location of Patient: PreOp Indication: Acute Post-Operative Pain, Requested by Surgeon Sedation Type: Sedate with meaningful contact maintained Preparation: Sterile Prep, Sterile Dressing Position: Supine Catheter: Indwelling Needle Types: Pajunk Needle Gauge: 21 Ultrasound used to visualize needle placement: Yes Ultrasound used to observe medication spread: Yes Blood Aspirated: No Pain Paresthesia on Injection Noted: No Resistance on Injection: Normal Image Stored and Saved: Yes Events: Uneventful and Well Tolerated (Ropivacaine 0.5% 20 cc plus dexamethasone 4 mg)
--- NOTE | 2023-11-06 10:45 | P.ANPRN ---
Procedure Note - Anesthesia - Nerve Block Performed Left iPack Single Time Out Performed: Yes Date of Procedure: 11/06/23 Procedure Start Time: 07:16 Procedure Stop Time: 07:18 Location of Patient: PreOp Indication: Acute Post-Operative Pain, Requested by Surgeon Sedation Type: Sedate with meaningful contact maintained Preparation: Sterile Prep Position: Supine Needle Types: Pajunk Needle Gauge: 21 Ultrasound used to visualize needle placement: Yes Ultrasound used to observe medication spread: Yes Blood Aspirated: No Pain Paresthesia on Injection Noted: No Resistance on Injection: Normal Image Stored and Saved: Yes Events: Uneventful and Well Tolerated (Ropivacaine 0.5% 20 cc plus dexamethasone 4 mg)
[2023-11-06] MEDS: HYDROmorphone 0.5 MG/0.5 ML SYRINGE IVP PRN (11:32)
[2023-11-06] MEDS: ONDANSETRON 4 MG/2 ML VIAL IVP PRN (11:44)
[2023-11-06] MEDS: droPERidol 5 MG/2 ML VIAL IVP ONE (12:10)
[2023-11-06 12:51] LABS: Glucose,Whole Blood 270 mg/dL (70-110)
[2023-11-06] MEDS: INSULIN ASPART (NovoLOG) 100 UNIT/ML VIAL SQ ONE (13:00)
[2023-11-06] MEDS: HYDROcodone/APAP 7.5-325MG 1 EACH TAB PO PRN (15:29)
[2023-11-06 16:41] LABS: Glucose,Whole Blood 291 mg/dL (70-110)
[2023-11-06] MEDS ORDERED: DEXTROSE 50% SYRINGE 50 ML IVP PRN ×2 (17:18)
[2023-11-06] MEDS: INSULIN ASPART (NovoLOG) 100 UNIT/ML VIAL SQ SCH (17:27)
[2023-11-06] MEDS: SENNOSIDES-DOCUSATE SODIUM 1 EACH TAB PO SCH (20:28)
[2023-11-06] MEDS: FAMOTIDINE 20 MG TAB PO SCH (20:29)
[2023-11-06] MEDS: ATORVASTATIN 40 MG TAB PO SCH (20:29)
[2023-11-06] MEDS: lisinopriL 20 MG TAB PO SCH (20:29)
[2023-11-06] MEDS: metFORMIN 500 MG TAB PO SCH (20:29)
[2023-11-06 21:23] LABS: Glucose,Whole Blood 229 mg/dL (70-110)
[2023-11-06] MEDS: LATANOPROST 0.005% OPHTH DROPS 2.5 ML BTL BOTH EYES SCH (21:48)
--- NOTE | 2023-11-06 22:57 | P.CONS ---
History of Present Illness - Reason for Consult Consult date: 11/06/23 Medical management - Chief Complaint Status post left total knee arthroplasty - History of Present Illness Patient is a 73-year-old female with a past medical history of CAD status post stent placement in 2021, hypertension, hyperlipidemia, diabetes type 2 [id number], osteoarthritis and GERD was admitted to hospital for elective left total knee arthroplasty. Patient is s/p left total knee arthroplasty cemented posterior stabilized. Currently patient is resting in the bed. Awake alert and oriented. No complaints of chest pain or shortness of breath. Soreness of the surgical site. Otherwise pain is well-controlled. Patient is also on nerve block. Denies any fever or chills. No cough or sputum production. Laboratory showed a blood sugar 270 and 291. Blood pressure was elevated this morning with SBP in 170s. Review of Systems PHYSICAL EXAMINATION: Patient is lying in the bed comfortably, no acute distress, awake alert and oriented.. HEENT: Normocephalic. Neck is supple. Pupils reactive. Nostrils clear. Oral cavity is moist. Neck reveals no JVD, carotid bruits, or thyromegaly. CHEST EXAMINATION: Trachea is central. Symmetrical expansion. Lung jonas clear to auscultation and percussion. CARDIAC: Normal S1, S2 with no gallops. No murmurs ABDOMEN: Soft. Bowel sounds normal. No organomegaly. No abdominal bruits. Extremities: reveal no edema. No clubbing or cyanosis Neurologically awake, alert, oriented x3 with well-coordinated movements. No focal deficits noted Skin: No rash or skin lesions. Psychiatric: Coperative. Nonsuicidal Musculoskeletal: No joint swelling or deformity. Normal range of motion. Past Medical History Past Medical History: Diabetes Mellitus, GERD/Reflux, Hyperlipidemia, Hypertension, Osteoarthritis (OA) Additional Past Medical History / Comment(s): pinched nerve in neck-got pain injection to help-did work, had fainting spell in May. in [place]-had cardiac testing, wore monitor, all testing wnl per pt. History of Any Multi-Drug Resistant Organisms: None Reported Past Surgical History: Breast Surgery, Cholecystectomy, Heart Catheterization With Stent, Joint Replacement, Orthopedic Surgery Additional Past Surgical History / Comment(s): shoulder scope; Lipoma x 2; benign breast biopsy, cataracts, right knee replaced, laser procedure left eye Past Anesthesia/Blood Transfusion Reactions: No Reported Reaction Date of Last Stent Placement:: 12/25/21 Past Psychological History: No Psychological Hx Reported Smoking Status: Never smoker Past Alcohol Use History: Rare Past Drug Use History: None Reported - Past Family History Mother Family Medical History: Cancer Additional Family Medical History / Comment(s): Breast CA Father Family Medical History: Coronary Artery Disease (CAD), Diabetes Mellitus, Hypertension Medications and Allergies Home Medications Medication Instructions Recorded Confirmed Type Aspirin 81 mg PO DAILY 12/28/17 11/02/23 History Atorvastatin [Lipitor] 40 mg PO HS 12/28/17 11/06/23 History Etodolac [Lodine] 400 mg PO BID 12/28/17 11/02/23 History metFORMIN HCL [Glucophage] 1,000 mg PO BID 12/28/17 11/06/23 History Famotidine 20 mg PO HS 12/06/22 11/06/23 History amLODIPine BESYLATE 5 mg PO DAILY 12/06/22 11/02/23 History Latanoprost Ophth [Xalatan 0.005%] 1 drops BOTH EYES HS 11/02/23 11/06/23 History lisinopriL [Zestril] 20 mg PO BID 11/02/23 11/06/23 History Allergies Allergy/AdvReac Type Severity Reaction Status Date / Time hydrocodone [From Lortab] AdvReac Nausea & Verified 11/06/23 06:27 Vomiting morphine AdvReac Nausea & Verified 11/06/23 06:27 Vomiting Physical Exam Vitals: Vital Signs Temp Pulse Resp BP Pulse Ox 11/06/23 19:34 97.7 F 92 18 121/62 98 11/06/23 13:26 98.1 F 106 H 17 135/75 93 L 11/06/23 12:45 99 16 135/62 100 11/06/23 12:15 98 16 139/64 99 11/06/23 11:45 89 16 133/63 99 11/06/23 11:31 149/70 11/06/23 11:29 100 16 96 11/06/23 10:36 90 18 163/75 94 L 11/06/23 10:21 92 16 174/68 94 L 11/06/23 10:07 88 16 143/71 95 11/06/23 09:52 86 16 144/69 95 11/06/23 09:36 97.4 F L 84 16 132/62 98 11/06/23 07:20 92 18 153/66 97 11/06/23 06:48 97.9 F 97 18 169/74 98 Intake and Output 11/06/23 11/06/23 11/06/23 06:59 14:59 22:59 Intake Total 200 751 Output Total 50 Balance 200 701 Intake: IV 200 751 Output: Estimated Blood Loss 50 Other: # Voids 1 Weight 74.8 kg 74.8 kg PHYSICAL EXAMINATION: Patient is lying in the bed comfortably, no acute distress, awake alert and orie nted.. HEENT: Normocephalic. Neck is supple. Pupils reactive. Nostrils clear. Oral cavity is moist. Neck reveals no JVD, carotid bruits, or thyromegaly. CHEST EXAMINATION: Trachea is central. Symmetrical expansion. Lung jonas clear to auscultation and percussion. CARDIAC: Normal S1, S2 with no gallops. No murmurs ABDOMEN: Soft. Bowel sounds normal. No organomegaly. No abdominal bruits. Extremities: reveal no edema. No clubbing or cyanosis Neurologically awake, alert, oriented x3 with well-coordinated movements. No focal deficits noted Skin: No rash or skin lesions. Psychiatric: Coperative. Nonsuicidal Musculoskeletal: No joint swelling or deformity. Left knee surgical site intact. Results Labs: Abnormal Lab Results - Last 24 Hours (Table) 11/06/23 11/06/23 11/06/23 Range/Units 07:00 12:49 16:39 POC Glucose (mg/dL) 178 H 270 H 291 H (70-110) mg/dL 11/06/23 Range/Units 21:21 POC Glucose (mg/dL) 229 H (70-110) mg/dL Assessment and Plan Assessment: Status post left total knee arthroplasty. Postoperative day 0 Hypertension. Controlled now. Hyperglycemia with uncontrolled diabetes type 2 [id number] Coronary artery h disease with history of stent placement in 2021 Hyperlipidemia Osteoarthritis GERD DVT prophylaxis and GI prophylaxis Plan: Patient will be continued on current pain medications, bowel regimen and encourage incentive spirometry. Patient was started back on metformin and insulin sliding scale for better blood sugar control. Continue with lisinopril. Continue with statins. Patient was started on Xarelto for DVT prophylaxis as per primary team. Follow-up CBC and BMP tomorrow. Further recommendations based on the clinical course. Thank you kindly for your consult. Time with Patient: Greater than 30
[2023-11-07 01:51] VITALS: TEMP 98.2
[2023-11-07 05:49] LABS: Glucose,Whole Blood 210 mg/dL (70-110)
[2023-11-07 07:31] VITALS: BP 164/76; PULSE 93; RESP 14
--- NOTE | 2023-11-07 08:02 | P.PN ---
Progress Note - Text Progress Note Date: 11/07/23 patient was seen and evaluated at bedside. Status post postoperative day 1 for Left total knee arthroplasty patient had adductor canal catheter for postop pain control. Patient rated pain at rest 5 out of 10 in severity. Patient describes pain is aching, throbbing type on the sides of the knee and back of the knee. Patient started walking with support. With activity patient pain levels are 6-7 out of 10 in severity. With the help of oral pain medications pain levels are tolerable. Patient denied any weakness/ numbness in lower extremities. patient denied any fever, pain over the catheter site. Physical exam: Patient vital signs stable Patient is alert awake oriented 3 responding to all questions appropriately Examination of the catheter site showed dressing intact, no leaking fluid around the catheter, no redness, no tenderness over the catheter insertion area. plan: status post postoperative day 1 for left total knee arthroplasty with adductor canal catheter for pain control. Patient was discussed to continue the medication at the rate of 8 mL per hour until the pump is completely empty and instructed the patient how to discontinue the catheter.
[2023-11-07] MEDS: RIVAROXABAN 10 MG TAB PO SCH (08:40)
[2023-11-07] MEDS: predniSONE 10 MG TAB PO SCH (08:40)
--- NOTE | 2023-11-07 08:59 | P.DS ---
Providers Date of admission: 11/06/2023 Expected date of discharge: 11/07/23 Attending physician: Julio Cesar Mccollum Consults: 11/06/23 09:15 Consult Physician Routine Consulting Provider: Jefry Nuñez Consult Reason/Comments: medical management s/p left total knee arthroplasty Do you want consulting provider notified?: Yes Primary care physician: Lenin Valerio MD Hospital Course: Date of admission: 11/06/2023 Date of discharge: 11/07/2023 Admission diagnosis: Left knee osteoarthritis Discharge diagnosis: Same Attending physician: Dr. Mccollum Surgical procedures: Left total knee arthroplasty Brief history: Patient is a 73-year-old female with a history of progressive primary left knee osteoarthritis. At this point patient has failed conservative treatment measures and has opted to proceed with a elective left total knee arthroplasty. Hospital course: Details of patient's surgery can be found in operative report. Patient tolerated the procedure well and was subsequently transported to orthopedic floor. Patient's orthopeidc and medical care was provided daily. Patient had daily laboratory tests performed for evaluation of overall blood counts. Patient had daily physical therapy to include strengthening range of motion as well as education with walker ambulation. Patient was treated with Xarelto for their postoperative DVT prophylaxis during their inpatient stay. Patient was noted to have a relatively uneventful postoperative course. Patient reported satisfactory pain control with oral pain medications by postoperative day 1. Patient showed satisfactory progress with physical therapy. Patient moved steadily through the program and had no difficulty meeting the goals by postoperative day 1. Given patient's otherwise satisfactory course and having m et physical therapy goals, plan is to discharge patient home with health services on postoperative day 1. Discharge condition/disposition: Patient will be discharged home with health services in stable condition. Discharge medications: Instructions are given on resumption of patient's normal daily medications per primary care recommendation, in addition patient will be prescribed [place]; senna; Zofran; Medrol Dosepak. Discharge instructions: 1. Wound care and infection precautions, keep incision dry and covered while showering, no lotions, creams, moisturizers. No soaking, tubs, pools, hottubs. Do not scrub over the incision. 2. Weight-bear as tolerated with walker / cane until follow-up. 3. Ice and elevate when necessary. Do not exceed 20 minutes per hour with ice pack. 4. Utilize compression sleeve until seen at first follow up appointment. 5. Visiting nursing care. 6. Home physical therapy including home CPM. 7. Pain meds and anticoagulants per prescription. 8. Pain medication has potential to cause constipation. Increase oral fluid and fiber intake. Contact primary care provider if you have not had a bowel movement within 48 hours after discharge 9. No anti-inflammatory medication until discussed at first post operative visit, this including Motrin, Aleve, Mobic, Diclofenac. 10. Follow up in office at 2 weeks postop with Gaurav Mullen PA-C / Jelani Kumar PA-C 11. Follow up with your primary care doctor 7-10 days after discharge. 12. Contact [facility] with any questions, . Assessment: Left knee osteoarthritis Procedures: Left total knee arthroplasty Patient Condition at Discharge: Good Plan - Discharge Summary Discharge Rx Participant: No New Discharge Prescriptions: New Sennosides/Docusate Sodium [Senna Plus 8.6-50 mg Softgel] 1 each PO DAILY #20 capsule Ondansetron [Zofran] 4 mg PO Q8HR PRN #28 tab PRN Reason: Nausea methylPREDNISolone Dose Pack [Medrol Dose Pack] 4 mg PO DIRECTED #21 tab HYDROcodone/APAP 7.5-325MG [[place] 7.5-325] 1 tab PO Q6HR PRN #28 tab PRN Reason: Pain Continue Aspirin 81 mg PO DAILY No Action metFORMIN HCL [Glucophage] 1,000 mg PO BID Etodolac [Lodine] 400 mg PO BID Atorvastatin [Lipitor] 40 mg PO HS Famotidine 20 mg PO HS lisinopriL [Zestril] 20 mg PO BID Latanoprost Ophth [Xalatan 0.005%] 1 drops BOTH EYES HS amLODIPine BESYLATE 5 mg PO DAILY Discharge Medication List Aspirin 81 mg PO DAILY 12/28/17 [History] Atorvastatin [Lipitor] 40 mg PO HS 12/28/17 [History] Etodolac [Lodine] 400 mg PO BID 12/28/17 [History] metFORMIN HCL [Glucophage] 1,000 mg PO BID 12/28/17 [History] Famotidine 20 mg PO HS 12/06/22 [History] amLODIPine BESYLATE 5 mg PO DAILY 12/06/22 [History] Latanoprost Ophth [Xalatan 0.005%] 1 drops BOTH EYES HS 11/02/23 [History] lisinopriL [Zestril] 20 mg PO BID 11/02/23 [History] HYDROcodone/APAP 7.5-325MG [[place] 7.5-325] 1 tab PO Q6HR PRN #28 tab 11/07/23 [Rx] Ondansetron [Zofran] 4 mg PO Q8HR PRN #28 tab 11/07/23 [Rx] Sennosides/Docusate Sodium [Senna Plus 8.6-50 mg Softgel] 1 each PO DAILY #20 capsule 11/07/23 [Rx] methylPREDNISolone Dose Pack [Medrol Dose Pack] 4 mg PO DIRECTED #21 tab [Rx] Follow up Appointment(s)/Referral(s): Jelani Kumar, ZACKERY [PHYSICIAN LOAD BUILDER] - 2 Weeks Patient Instructions/Handouts: Knee Replacement (DC), Knee Replacement (GEN) Activity/Diet/Wound Care/Special Instructions: Orthopedic Discharge Instructions: 1. Wound care and infection precautions, keep incision dry and covered while showering, no lotions, creams, moisturizers. No soaking, pools, hot tubs. Do not scrub over incision. 2. Weight-bear as tolerated with walker / cane until follow-up. 3. Ice and elevate when necessary. Do not exceed 20 minutes per hour with ice pack. 4. Utilize compression sleeve until seen at first follow up appointment. 5. Pain meds and anticoagulants per prescription. 6. Pain medication has potential to cause constipation. Increase oral fluid and fiber intake. Contact primary care provider if you have not had a bowel movement within 48 hours after discharge. 7. No anti-inflammatory medication until discussed at first post operative visit, this including Motrin, Aleve, Mobic, Diclofenac. 8. Follow up in office at 2 weeks postop with Gaurav Mullen PA-C / Ivett Woodson 9. Follow up with your primary care doctor 7-10 days after discharge. 10. Contact [facility] with any questions, . Keep incision clean, dry, intact. While showering, cover fusion tape with Saran wrap. Keep fusion tape on until follow-up appointment in office in 2 weeks. Resume aspirin and Plavix at home for DVT prophylaxis Discharge Disposition: HOME WITH HOME HEALTH SERVICES
--- NOTE | 2023-11-07 09:09 | P.PN ---
Subjective Progress Note Date: 11/07/23 Principal diagnosis: Left knee osteoarthritis Patient was seen at bedside this morning sitting up at the edge of bed with dressing present over left knee. Patient says she has been up walking around the room under her own power. Patient is hoping to go home later today. She sa ys she does have a walker at home. Patient says due to her history of nausea when taking narcotic pain medication she is hoping to get Zofran for home. Patient says she also has some chronic neck and upper extremity pain for which she has had steroid injections in the neck in the past and oral steroids to help. Patient is looking forward to working with therapy this morning. Patient says she has urinated since surgery yesterday without issue. Patient has not had a bowel yet, however, patient says she has been passing gas. Patient denies chest pain, fever, shortness of breath, nausea, vomiting, change in vision, loss of bowel/bladder control. Objective - Vital Signs Vital signs: Vital Signs Temp 98.2 F 11/07/23 06:51 Pulse 93 11/07/23 06:51 Resp 14 11/07/23 06:51 BP 164/76 11/07/23 06:51 Pulse Ox 97 11/07/23 06:51 FiO2 Intake & Output 11/06/23 11/07/23 11/07/23 18:59 06:59 18:59 Intake Total 751 Output Total 50 Balance 701 Weight 74.8 kg Intake: IV 751 Output: Estimated Blood Loss 50 Other: Voiding Method Toilet # Voids 1 1 - Exam Left knee: Incision is clean, dry, and intact. The exofin fusion tape is in good condition. There is minimal soft tissue swelling and ecchymosis surrounding the medial and lateral aspects of the incision. Calf is soft, no tenderness with palpation. Plantar flexion, dorsiflexion, EHL, FHL are intact. Sensory exam to light touch throughout the extremity is intact, dorsal pedis pulses 2+. - Labs Labs: Abnormal Lab Results - Last 24 Hours (Table) 11/06/23 11/06/23 11/06/23 Range/Units 12:49 16:39 21:21 POC Glucose (mg/dL) 270 H 291 H 229 H (70-110) mg/dL 11/07/23 Range/Units 05:48 POC Glucose (mg/dL) 210 H (70-110) mg/dL Assessment and Plan Assessment: 1. Left knee osteoarthritis -Postop day 1 status post left total knee arthroplasty Plan: 1. Left knee osteoarthritis -left total knee arthroplasty form yesterday, 11/06/2023. Patient stable bedside this morning. Patient does have a walker at home. Patient did do well with PT/OT. Patient to be discharged with Zofran and Medrol Dosepak. Discharge home today with health services. 2. Appreciate medical management 3. Pain management -[place]; Tylenol 4. DVT prophylaxis -Xarelto in hospital. Patient to resume aspirin and Plavix at home for DVT prophylaxis 5. GI prophylaxis -senna 6. PT/OT -weightbearing as tolerated with walker 7. Encourage incentive spirometer use 8. Discharge planning -home today with health services.
[2023-11-07 10:37] LABS: Basophils # (A) 0.07 X 10*3/uL (0.00-0.10); Basophils % (A) 0.6 %; Eosinophils # (A) 0.01 X 10*3/uL (0.04-0.35); Eosinophils % (A) 0.1 %; HCT 29.8 % (37.2-46.3); HGB 9.9 g/dL (12.0-15.0); Lymphocytes # (A) 0.69 X 10*3/uL (0.90-5.00); Lymphocytes % (A) 5.9 %; MCH 28.7 pg (27.0-32.0); MCHC 33.2 g/dL (32.0-37.0); MCV 86.4 FL (80.0-97.0); Mean Platelet Volume 11.8 FL (9.5-12.2); Monocytes # (A) 0.98 X 10*3/uL (0.20-1.00); Monocytes % (A) 8.4 %; NRBC Per 100 WBC 0 X 10*3/uL (0.00-0.01); Neutrophils # (A) 9.86 X 10*3/uL (1.80-7.70); Neutrophils % (A) 84.7 %; Platelet Count 277 X 10*3/uL (140-440); RBC 3.45 X 10*6/uL (4.10-5.20); RDW 13.2 % (11.5-14.5); WBC 11.65 X 10*3/uL (4.50-10.00)
[2023-11-07 10:42] LABS: BUN/Creat Ratio 18.88 Ratio (12.00-20.00); Blood Urea Nitrogen 15.1 mg/dL (9.0-27.0); Calcium 9.5 mg/dL (8.7-10.3); Chloride 102 mmol/L (96-109); Glucose 207 mg/dL (70-110); Potassium 4.6 mmol/L (3.5-5.5); Sodium 135 mmol/L (135-145)
== END 2023-11-07 12:38 | disposition home health service (06) ==
LOC: OR 05:50 → 4SSUR 09:31 → OR 11-07 12:38
PROVIDERS: ATTEND Orthopaedic Surgery
DX: M17.12 Unilateral primary osteoarthritis, left knee (principal); G89.18 Other acute postprocedural pain; E11.69 Type 2 diabetes mellitus with other specified complication; E78.5 Hyperlipidemia, unspecified; I10 Essential (primary) hypertension; K21.9 Gastro-esophageal reflux disease without esophagitis; I25.10 Atherosclerotic heart disease of native coronary artery without angina pectoris; Z95.5 Presence of coronary angioplasty implant and graft; Z79.82 Long term (current) use of aspirin; Z79.899 Other long term (current) drug therapy; Z79.84 Long term (current) use of oral hypoglycemic drugs; Z88.5 Allergy status to narcotic agent; Z88.6 Allergy status to analgesic agent; Z88.8 Allergy status to other drugs, medicaments and biological substances
CPT/HCPCS: 97530; 97161; 64999; 64448; 80048; 85025; 83036; 73560; 27447; C1713 ×2; C1776; C1751; J2250; J1100; J0690 ×2; J2405 ×2; J2795; J7512; J1170 ×2; J1790

== ENCOUNTER → 2024-02-25 | Outpatient (CLI) | payer MEDICARE, OTHER ==
--- NOTE | 2024-02-25 14:17 | BD ---
EXAMINATION TYPE: Axial Bone Density DATE OF EXAM: 02/25/2024 CLINICAL HISTORY: 73 years old Female. ICD-10 CODE: N95.9 MENOPAUSAL AND PERIMENOPAUS , Additional H istory: Height: 60 in Weight: 159 lbs FRAX RISK QUESTIONS: Family History (Parent hip fracture): yes mother EXAM MEASUREMENTS: Bone mineral densitometry was performed using the [employer]. Bone mineral density as measured about the Lumbar spine is: ----- L1-L4(G/cm2): 1.511 T Score Values are as follows: ----- L1: 1.1 ----- L2: 2.5 ----- L3: 4.1 ----- L4: 3.0 ----- L1-L4: 2.8 Z Score Values are as follows: ----- L1: 2.6 ----- L2: 4.0 ----- L3: 5.6 ----- L4: 4.5 ----- L1-L4: 4.3 Bone mineral density has: Decreased -7.4% since study of: 01/07/2019 Bone mineral density about the R hip (g/cm2): 0.738 Bone mineral density about the L hip (g/cm2): 0.788 T Score values are as follows: -----R Neck: -1.9 -----L Neck: -1.6 -----R Total: -2.1 -----L Total: -1.7 Z Score values are as follows: -----R Neck: -0.2 -----L Neck: 0.1 -----R Total: -0.6 -----L Total: -0.2 Bone mineral density has: Decreased -14.7% since study of: 01/07/2019 FRAX%s: The graph provided illustrates a 21.8% chance for a major osteoporotic fx and a 12.2% chance for the hips probability for fx in 10 years time. IMPRESSION: Osteopenia (T Score between -2.5 and -1). There is slightly increased risk of fracture and the patient may be considered for treatment. Re-Screen 2-5 years. NOTE: T-SCORE=SD OF THE YOUNG ADULT MEAN. [facility], , 02/25/2024 2:15 PM
--- NOTE | 2024-02-26 10:03 | MM ---
Reason for Exam: Screening (asymptomatic). Last screening mammogram was performed 12 month(s) ago. Patient History: Menarche at age 9. First Full-Term at age 17. Postmenopausal. 1997, Benign Excisional Biopsy on the left side. 11/24/2014, Benign Core Biopsy on the left side. Maternal grandmother had breast cancer. Mother had breast cancer. Risk Values: Sue 5 year model risk: 5.4%. NCI Lifetime model risk: 12.0%. Prior Study Comparison: 01/20/2021 Bilateral Screening Mammogram, [facility]. 01/23/2022 Bilateral MG 3D screening mammo w/cad, [facility]. 02/22/2023 Bilateral MG 3D screening mammo w/cad, [facility]. Tissue Density: The breasts are heterogeneously dense, which may obscure small masses. Findings: Analyzed By CAD. There is no suspicious group of microcalcifications or new suspicious mass in either breast. Overall Assessment: Benign, BI-RAD 2 Management: Screening Mammogram of both breasts in 1 year. . Patient should continue monthly self-breast exams. A clinical breast exam by your physician is recommended on an annual basis. This exam should not preclude additional follow-up of suspicious palpable abnormalities. Note on Sue scores and lifetime risk: 1. A Sue score greater than 3% is considered moderate risk. If this is the case, consider specialist referral to assess eligibility for a risk reducing agent. 2. If overall lifetime risk for the development of breast cancer is 20% or higher, the patient may qualify for future screening with alternating mammogram and breast MRI. [facility], , 02/26/2024 9:59 AM. Electronically signed and approved by: Tanmay Templeton M.D. [facility]
== END | disposition home or self-care (01) ==
LOC: RADMAMWWP 12:02
PROVIDERS: ATTEND Internal Medicine
DX: Z12.31 Encounter for screening mammogram for malignant neoplasm of breast (principal); Z13.820 Encounter for screening for osteoporosis; N95.9 Unspecified menopausal and perimenopausal disorder; Z78.0 Asymptomatic menopausal state; Z80.3 Family history of malignant neoplasm of breast
CPT/HCPCS: 77063; 77067; 77080

== ENCOUNTER → 2024-10-07 | Outpatient (CLI) | payer MEDICARE ==
[2024-10-07 14:56] LABS: Basophils # (A) 0.13 X 10*3/uL (0.00-0.10); Basophils % (A) 2.0 %; Eosinophils # (A) 0.19 X 10*3/uL (0.04-0.35); Eosinophils % (A) 2.9 %; HCT 36.3 % (37.2-46.3); HGB 11.6 g/dL (12.0-15.0); Immature Grans, Automated 0.60 %; Lymphocytes # (A) 1.52 X 10*3/uL (0.90-5.00); Lymphocytes % (A) 22.9 %; MCH 27.7 pg (27.0-32.0); MCHC 32.0 g/dL (32.0-37.0); MCV 86.6 FL (80.0-97.0); Monocytes # (A) 0.72 X 10*3/uL (0.20-1.00); Monocytes % (A) 10.8 %; NRBC Per 100 WBC 0 X 10*3/uL (0.00-0.01); Neutrophils # (A) 4.04 X 10*3/uL (1.80-7.70); Neutrophils % (A) 60.8 %; Platelet Count 344 X 10*3/uL (140-440); RBC 4.19 X 10*6/uL (4.10-5.20); RDW 14.3 % (11.5-14.5); WBC 6.64 X 10*3/uL (4.50-10.00)
[2024-10-07 15:23] LABS: BUN/Creat Ratio 9.62 Ratio (12.00-20.00); Blood Urea Nitrogen 7.7 mg/dL (9.0-27.0); Cholesterol 144.00 mg/dL (0.00-200.00); Glucose 154 mg/dL (70-110); HDL Cholesterol 50.40 mg/dL (40.00-60.00); LDL Cholesterol,Calculated 56.4 mg/dL (0.0-131.0); Triglycerides 186.00 mg/dL (0.00-149.00); VLDL Calculation 37.20 mg/dL (5.00-40.00)
[2024-10-07 15:24] LABS: ALT 16 U/L (8-44); AST 24 U/L (13-35); Albumin 4.3 g/dL (3.8-4.9); Albumin/Globulin Ratio 1.72 Ratio (1.60-3.17); Alkaline Phosphatase 73 U/L (41-126); Anion Gap 12.60 mmol/L (4.00-12.00); Calcium 10.1 mg/dL (8.7-10.3); Carbon Dioxide 22.4 mmol/L (21.6-31.8); Chloride 101 mmol/L (96-109); Globulin 2.5 g/dL (1.6-3.3); Potassium 4.2 mmol/L (3.5-5.5); Sodium 136 mmol/L (135-145); Total Protein 6.8 g/dL (6.2-8.2)
== END | disposition home or self-care (01) ==
LOC: LABWHC1 12:19
PROVIDERS: ATTEND Internal Medicine
DX: E78.5 Hyperlipidemia, unspecified (principal); E11.9 Type 2 diabetes mellitus without complications
CPT/HCPCS: 36415; 80053; 80061; 82043; 82570; 83036; 85025